=== PATIENT | male | born 1940 | race Caucasian/White ===

== ENCOUNTER → 2018-04-06 12:26 | Outpatient (CLI) | payer MEDICARE, BC, SELFPAY ==
--- NOTE | 2018-04-08 09:00 | PM.PFT.1 ---
Pulmonary Function Test Referral & Results Date Patient Seen: 04/06/18 Requesting provider: Pawan Raphael Indication: Amiodarone therapy Results: The spirometry demonstrates an FVC of 4.55 L which is 103% of predicted. The FEV1 was measured at 3.51 L which is 110% of predicted. The FEV1/FVC ratio was 77 which is 107% of predicted. No bronchodilator was administered Lung volumes show an SVC of 4.92 L which is 106% of predicted. The diffusing capacity was measured at 22.5 for which is 66% of predicted. No hemoglobin value was provided, so no correction for potential anemia could be made, if appropriate. The maximum voluntary ventilation was normal. Interpretation: This study demonstrates normal spirometry. Diffusing capacity is reduced as above. Compared to PFTs performed in September 2017, previous spirometry was also normal but diffusing capacity was measured at 27.01 or 80% of predicted compared to 22.5 and 66% of predicted on this study
== END ==
PROVIDERS: PCP Physician Assistant; Visit Provider Internal Medicine Cardiovascular Disease
DX: Z79.899 Other long term (current) drug therapy (principal)
CPT/HCPCS: 94010; 94726; 94729

== ENCOUNTER → 2018-05-16 08:19 | Outpatient (CLI) | payer MEDICARE, BC, SELFPAY ==
[2018-05-16 10:19] LABS: Alanine Aminotransferase 30 IU/L (21-72); Albumin 3.7 g/dL (3.5-5.0); Albumin Globulin Ratio 1.5 (1.0-2.8); Alkaline Phosphatase 69 U/L (38-126); Aspartate Aminotransferase 25 IU/L (17-59); Bilirubin Total 0.6 mg/dL (0.2-1.3); Blood Urea Nitrogen 18 mg/dL (9-20); Calcium 8.5 mg/dL (8.4-10.2); Carbon Dioxide 27 mmol/L (22-32); Chloride 105 mmol/L (98-107); Globulin 2.5 g/dL (1.7-4.1); Glucose 86 mg/dL (80-110); HEMOLYSIS < 15 (0-50); Potassium 4.8 mmol/L (3.4-5.1); Sodium 141 mmol/L (137-145); Total Protein 6.2 g/dL (6.3-8.2)
[2018-05-16 10:50] LABS: Thyroid Stimulating Hormone 1.86 uIU/mL (0.47-4.68)
== END ==
PROVIDERS: PCP Physician Assistant; Visit Provider Internal Medicine Cardiovascular Disease
DX: I48.2 Chronic atrial fibrillation (principal); I48.0 Paroxysmal atrial fibrillation; I49.3 Ventricular premature depolarization; Z79.899 Other long term (current) drug therapy
CPT/HCPCS: 36415; 80053; 84443

== ENCOUNTER → 2018-06-06 08:31 | Outpatient (CLI) | payer MEDICARE, BC, SELFPAY ==
[2018-06-06 10:45] LABS: BUN Creatinine Ratio 15.4 (6-22); Blood Urea Nitrogen 20 mg/dL (9-20); Calcium 8.5 mg/dL (8.4-10.2); Carbon Dioxide 27 mmol/L (22-32); Chloride 106 mmol/L (98-107); Estimated Glomerular Filt Rate 53.8 mL/min (>60); Glucose 92 mg/dL (80-110); HEMOLYSIS < 15 (0-50); Potassium 4.1 mmol/L (3.4-5.1); Sodium 143 mmol/L (137-145)
== END ==
PROVIDERS: Family Provider Physician Assistant; PCP Physician Assistant; Visit Provider Internal Medicine Cardiovascular Disease
DX: I48.0 Paroxysmal atrial fibrillation (principal)
CPT/HCPCS: 36415; 80048

== ENCOUNTER → 2018-09-15 12:13 | Outpatient (CLI) | payer MEDICARE, BC, SELFPAY ==
--- NOTE | 2018-09-15 | DI.ECHO.S_ITS ---
[facility] +---------+ [facility] +---------+ : : [address] : [address] : : : : [phone] : : : : Phone: [phone]---------+ Echocardiogram Report + + :Name: HEIDI URENA Study Date: 09/15/2018 Height: 71 in : :[facility] Weight: 215 lb: : Gender: Male BSA: 2.2 m2 : :: 1940 Age: 78 yrs : :Reason For Study: : :Ordering Physician: Lakshmi : :Ijeoma Performed By: Natalya Crouch : :Referring: LAKSHMI NGUYEN : + + Interpretation Summary The left ventricle is mildly dilated. Left ventricular ejection fraction is estimated to be 45 +/- 5%. There is mild to moderate global hypokinesis of the left ventricle. The right ventricle is at the upper limits of normal in size. The left atrium is severely dilated. There is mild mitral regurgitation. There is mild aortic regurgitation. There is moderate to severe aortic stenosis. There has been no significant change since the previous study. There is mild tricuspid regurgitation. The right ventricular systolic pressure is estimated to be at least 32 mmHg based on an estimated right atrial pressure of 3 mm Hg. Procedure: A two-dimensional transthoracic echocardiogram with color flow and Doppler was performed. The study quality was technically adequate. Comparison is made with the echocardiogram of 11/17/2016. The heart rate ranged between 49-60 bpm during the study. Left Ventricle: There is normal left ventricular wall thickness. The left ventricle is mildly dilated. By systolic and diastolic volumes, left ventricle is severely abnormal. By 2D measurements, left ventricle is mildly abnormal. Left ventricular ejection fraction is estimated to be 45 +/- 5%. There is mild to moderate global hypokinesis of the left ventricle. Right Ventricle: The right ventricle is at the upper limits of normal in size. Right ventricular systolic function is borderline reduced. Atria: The left atrium is severely dilated. The right atrium is mildly dilated. There is no Doppler evidence for an interatrial shunt. Mitral Valve: There is mild mitral annular calcification. The mitral valve leaflets appear mildly thickened, but open well. There is mild mitral regurgitation. Aortic Valve: The aortic valve is trileaflet. The peak aortic velocity is averaged at 3.04 m/sec. The peak aortic velocity on the previous exam was 3.09 m/sec. The aortic valve mean gradient is 20 mmHg. There is moderate to severe aortic stenosis. There has been no significant change since the previous study. There is mild aortic regurgitation. Tricuspid Valve: The tricuspid valve leaflets are thin and pliable. There is mild tricuspid regurgitation. The right ventricular systolic pressure is estimated to be at least 32 mmHg based on an estimated right atrial pressure of 3 mm Hg. Pulmonic Valve: The pulmonic valve is normal in structure and function. There is a trace or physiologic amount of pulmonic regurgitation. Great Vessels: The aortic root is normal size. The ascending aorta is at the upper limits of normal in size. The aortic arch is normal in size. The pulmonary artery is normal size. The IVC is of normal diameter and collapses greater than 50% with a sniff. This suggests a low right atrial pressure of 3 mm Hg. Pericardium/ Pleura There is no pericardial effusion. There is no pleural effusion. MMode/2D Measurements & Calculations LVIDd: 6.0 cm LVOT diam: 2.2 cm LVIDs: 5.2 cm Ao root diam: 3.7 cm FS: 13.5 % asc Aorta Diam: 3.5 cm IVSd: 0.90 cm Ao Arch Diam (Prox Trans): 2.6 cm LVPWd: 0.91 cm LV perez. diameter/BSA (cm/m^2): 2.8 LV sys. diameter/BSA (cm/m^2): 2.4 LA A2 area: 34.7 cm2 RA long axis: 6.0 cm LA A4 area: 32.2 cm2 RA area: 23.6 cm2 LA length (vol): 6.7 cm RA vol: 78.5 ml LA vol: 142.2 ml RA : 36.1 ml/m2 LA vol index: 65.4 ml/m2 IVC diam: 2.1 cm RVD1 (basal): 3.7 cm TAPSE: 1.6 cm Doppler Measurements & Calculations Ao V2 max: 304.0 cm/sec LVOT Max Josh: 105.7 cm/sec Ao V2 mean: 208.6 cm/sec LV V1 max P.5 mmHg Ao max P.2 mmHg LV V1 VTI: 26.8 cm Ao mean P.5 mmHg JUDY(I,D): 1.4 cm2 Ao V2 VTI: 77.7 cm JUDY(V,D): 1.4 cm2 sev ratio: 0.34 JUDY indexed to BSA (cm^2/m^2): 0.62 MV E max josh: 58.5 cm/sec TR max josh: 267.9 cm/sec MV A max josh: 95.4 cm/sec TR max P.7 mmHg MV E/A: 0.61 Med Peak E' Josh: 5.6 cm/sec E/E' med: 10.5 Lat Peak E' Josh: 5.6 cm/sec E/E' lat: 10.5 E/e' average: 10.5 MV dec time: 0.28 sec Reading Physician:09:01 AM
--- NOTE | 2018-09-15 | DI.US.S_ITS ---
PROCEDURE: US RETRO PERITONEAL LIMITED INDICATIONS: NONRHEUMATIC AROTIC VALVE TECHNIQUE: Real time scanning was performed of the aorta and iliac arteries, with image documentation. COMPARISON: None. FINDINGS: Aorta: Proximal aortic diameter measures 2.3 cm. Mid-aorta measures 1.7 cm. Distal aortic diameter is 3.5 x 4.3 x 4.6 cm compared to 3.9 x 4.1 x 5.6 cm. Iliac arteries: Right common iliac artery measures 1.2 cm. Left common iliac artery measures 1.1 cm. IMPRESSION: 1. Less prominent appearance previously identified distal aortic aneurysmal dilation. Dictated by: Linh Fuentes M.D. on 09/15/2018 at 14:21 Approved by: Linh Fuentes M.D. on 09/15/2018 at 14:22
--- NOTE | 2018-09-15 | DI.US.S_ITS ---
PROCEDURE: US CAROTID DOPPLER BI INDICATIONS: NONRHEUMATIC AORTIC VALVE TECHNIQUE: Color and pulse Doppler interrogation was performed of both carotid systems, with image documentation and velocity measurements. COMPARISON: [facility], , CAROTID ARTERY DOPPLER BILAT, 05/05/2017, 13:21. FINDINGS: Stenosis calculations are based on SRU (Society of Radiologists in Ultrasound) criteria. Right side: Brachial blood pressure: Not obtained Common carotid artery peak systolic velocity: 72 cm/sec. Internal carotid artery peak systolic velocity: 76 cm/sec. Internal carotid artery end diastolic velocity: 21 cm/sec. External carotid artery peak systolic velocity: 65 cm/sec. ICA/CCA peak systolic ratio: 1.06 . Gonzales scale imaging description: Moderate plaque at the bifurcation Percent internal carotid artery stenosis: Less than 50%. Vertebral artery: Flow direction is antegrade. Left side: Brachial blood pressure: Not obtained Common carotid artery peak systolic velocity: 73 cm/sec. Internal carotid artery peak systolic velocity: 92 cm/sec. Internal carotid artery end diastolic velocity: 67 cm/sec. External carotid artery peak systolic velocity: 62 cm/sec. ICA/CCA peak systolic ratio: 1.26 Gonzales scale imaging description: Moderate plaque in the bifurcation. Percent internal carotid artery stenosis: Less than 50%. Vertebral artery: Flow direction is antegrade. IMPRESSION: Less than 50% stenosis of the internal carotid arteries bilaterally. Dictated by: Linh Fuentes M.D. on 09/15/2018 at 14:18 Approved by: Linh Fuentes M.D. on 09/15/2018 at 14:20
== END ==
PROVIDERS: PCP Internal Medicine; Visit Provider Internal Medicine Cardiovascular Disease
DX: I35.0 Nonrheumatic aortic (valve) stenosis (principal)
CPT/HCPCS: 76775; 93306; 93880

== ENCOUNTER → 2018-11-07 16:12 | Outpatient (REF) | payer MEDICARE, BC, SELFPAY ==
[2018-11-07 16:55] LABS: INR 2.8 (0.9-1.3); Prothrombin Time 33.1 SECONDS (10.1-12.7)
== END ==
LOC: LAB 16:12
PROVIDERS: PCP Internal Medicine; Visit Provider Internal Medicine
DX: I48.2 Chronic atrial fibrillation (principal)
CPT/HCPCS: 85610

== ENCOUNTER → 2019-08-02 07:41 | Outpatient (CLI) | payer MEDICARE, BC, SELFPAY ==
[2019-08-02 08:42] LABS: Alanine Aminotransferase 19 IU/L (21-72); Albumin 3.6 g/dL (3.5-5.0); Albumin Globulin Ratio 1.4 (1.0-2.8); Alkaline Phosphatase 62 U/L (38-126); Aspartate Aminotransferase 25 IU/L (17-59); BUN Creatinine Ratio 17.7 (6-22); Bilirubin Total 0.8 mg/dL (0.2-1.3); Blood Urea Nitrogen 23 mg/dL (9-20); Calcium 8.8 mg/dL (8.4-10.2); Carbon Dioxide 27 mmol/L (22-32); Chloride 107 mmol/L (98-107); Cholesterol 153 mg/dL (140-199); Estimated Glomerular Filt Rate 53.7 mL/min (>60); Globulin 2.6 g/dL (1.7-4.1); Glucose 79 mg/dL (80-110); HDL Cholesterol 61 mg/dL (40-60); HEMOLYSIS < 15 (0-50); LDL Cholesterol Calculated 80 mg/dL (<100); Potassium 3.9 mmol/L (3.4-5.1); Sodium 139 mmol/L (137-145); Total Protein 6.2 g/dL (6.3-8.2); Triglycerides 58 mg/dL (35-150)
== END ==
PROVIDERS: PCP Internal Medicine; Visit Provider Internal Medicine Cardiovascular Disease
DX: Z79.899 Other long term (current) drug therapy (principal)
CPT/HCPCS: 36415; 80053; 80061; 84443

== ENCOUNTER → 2019-08-09 08:50 | Outpatient (CLI) | payer MEDICARE, BC, SELFPAY ==
--- NOTE | 2019-08-09 | DI.US.S_ITS ---
PROCEDURE: US CAROTID DOPPLER BI INDICATIONS: CAROTID ARTERY STENOSIS TECHNIQUE: Color and pulse Doppler interrogation was performed of both carotid systems, with image documentation and velocity measurements. COMPARISON: [facility], , CAROTID ARTERY DOPPLER BILAT, 05/05/2017, 13:21. [facility], , US CAROTID DOPPLER BI, 09/15/2018, 13:16. FINDINGS: Stenosis calculations are based on SRU (Society of Radiologists in Ultrasound) criteria. The flow velocities and the arterial waveforms are normal within both carotid arterial systems. Atherosclerotic plaque is seen on both sides. The estimated degree of internal carotid artery stenosis is less than 50%. Antegrade flow is confirmed within both vertebral arteries. IMPRESSION: No hemodynamically significant stenosis is seen. No significant change from the prior. Atherosclerotic plaque is noted bilaterally. Dictated by: Cristian Peterson M.D. on 08/09/2019 at 12:31 Approved by: Cristian Peterson M.D. on 08/09/2019 at 12:32
--- NOTE | 2019-08-09 | DI.US.S_ITS ---
PROCEDURE: US RETRO PERITONEAL LIMITED INDICATIONS: ABDOMINAL AORTIC ANEURYSM WITHOUT RUPTURE TECHNIQUE: Real time scanning was performed of the aorta and iliac arteries, with image documentation. COMPARISON: [facility], RETRO PERITONEAL LIMITED, 09/15/2018, 13:27. FINDINGS: Aorta: Proximal aortic diameter measures 3.0 cm. Mid-aorta measures 2.5 cm. Distal aortic diameter is 4.0 cm AP by 4.7 cm transverse by 5.0 cm sagittal compared to 3.5 cm AP by 4.3 cm transverse by 4.6 cm craniocaudal. Iliac arteries: Right common iliac artery measures 1.9 cm compared to 1.2 cm. Left common iliac artery measures 1.8 cm compared to 1.1 cm. IMPRESSION: 1. Distal aortic aneurysmal dilation, increased compared to prior exam as above. 2. 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 Given prominent change in both the common iliac and aorta, CTA is recommended for further evaluation. Dictated by: Linh Fuentes M.D. on 08/09/2019 at 13:21 Approved by: Linh Fuentes M.D. on 08/09/2019 at 13:24
== END ==
PROVIDERS: PCP Internal Medicine; Visit Provider Internal Medicine Cardiovascular Disease
DX: I71.4 Abdominal aortic aneurysm, without rupture (principal); I65.23 Occlusion and stenosis of bilateral carotid arteries
CPT/HCPCS: 76775; 93880

== ENCOUNTER → 2019-08-14 09:23 | Outpatient (CLI) | payer MEDICARE, BC, SELFPAY ==
--- NOTE | 2019-08-14 | DI.CT.S_ITS ---
PROCEDURE: CT ANGIO ABD AORTA RUNOFF INDICATIONS: large aorta TECHNIQUE: After the administration of intravenous contrast, 2.5 mm sections acquired from T12 to the feet, with optional delayed image acquisition from the knees to the feet. 3-dimensional maximum intensity projection (MIP) coronal and sagittal reformats, and/or 3-dimensional volume rendering reformatting was then performed. For radiation dose reduction, the following was used: automated exposure control. COMPARISON: [facility], , US RETRO PERITONEAL LIMITED, 08/09/2019, 8:59. [facility], , US CAROTID DOPPLER BI, 08/09/2019, 9:19. FINDINGS: Image quality: Excellent. Extravascular tissues: Lung bases are clear. Heart size is normal. Liver is normal in size and enhancement. Gallbladder demonstrates multiple calculi within its lumen. Biliary system is non dilated. Pancreas enhances normally. Spleen is normal in size and enhancement. No adrenal nodules. Kidneys are normal in size and enhancement, without hydronephrosis. Non opacified bowel loops demonstrate normal wall thickness and enhancement. No free fluid or air. No retroperitoneal or mesenteric adenopathy. No ventral hernias. Bladder wall thickness is normal. No inguinal hernias or adenopathy. No suspicious bony lesions. No vertebral body compression fractures. 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 No significant aortic stenosis. No aortic dissection. Renal and mesenteric arteries: Celiac, superior mesenteric, and inferior mesenteric arteries are patent. Single bilateral renal arteries are present which demonstrate mild diffuse stenoses. Right lower extremity: There is mild dilatation of the right common iliac artery diffusely measuring 17 mm short axis. The common, internal, and external iliac arteries are patent. Common, profunda, and superficial femoral arteries are widely patent. Above and below-knee popliteal artery is patent. Anterior tibial artery, tibioperoneal trunk, peroneal, and posterior tibial arteries are patent to their normal termini. Left lower extremity: There is mild diffuse dilatation of the left common iliac artery, measuring 16 mm short axis. There is a moderate origin stenosis involving the internal iliac artery. External iliac artery is patent. Common femoral artery demonstrates moderate eccentric calcific stenosis distally. Profound and superficial femoral arteries are patent. Above and below-knee popliteal artery is patent. Anterior tibial artery, tibioperoneal trunk, peroneal and posterior tibial arteries are patent. IMPRESSION: 1. Aortoiliac aneurysms as described above. 2. Cholelithiasis. 3. No significant right inflow stenosis. 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 4. Three-vessel bilateral lower extremity runoff. Dictated by: Aspen Sandoval M.D. on 08/14/2019 at 10:42 Approved by: Aspen Sandoval M.D. on 08/14/2019 at 10:55
[2019-08-14 10:12] LABS: BUN Creatinine Ratio 17.5 (6-22); Blood Urea Nitrogen 21 mg/dL (9-20); Calcium 8.7 mg/dL (8.4-10.2); Carbon Dioxide 28 mmol/L (22-32); Chloride 104 mmol/L (98-107); Estimated Glomerular Filt Rate 58.9 mL/min (>60); Glucose 91 mg/dL (80-110); HEMOLYSIS < 15 (0-50); Potassium 4.7 mmol/L (3.4-5.1); Sodium 140 mmol/L (137-145)
[2019-08-14 10:32] LABS: Free T3, Triiodothyronine Free 4.33 pg/mL (2.77-5.27); Free T4, Direct Thyroxine 2.23 ng/dL (0.78-2.19)
[2019-08-14 10:45] LABS: Thyroid Stimulating Hormone 0.06 uIU/mL (0.47-4.68)
[2019-08-17 07:29] LABS: Thyroid Peroxidase Antibodies < 1 IU/mL (< 9)
== END ==
PROVIDERS: PCP Internal Medicine; Visit Provider Internal Medicine Cardiovascular Disease
DX: I71.4 Abdominal aortic aneurysm, without rupture (principal); I70.202 Unspecified atherosclerosis of native arteries of extremities, left leg; K80.20 Calculus of gallbladder without cholecystitis without obstruction; I10 Essential (primary) hypertension; R79.89 Other specified abnormal findings of blood chemistry; Z79.899 Other long term (current) drug therapy
CPT/HCPCS: 36415; 75635; 80048; 84439; 84443; 84481; 86376; Q9967

== ENCOUNTER → 2020-01-29 07:59 | Outpatient (CLI) | payer MEDICARE, BC, SELFPAY ==
[2020-01-29 09:11] LABS: Alanine Aminotransferase 23 IU/L (<50); Albumin 3.8 g/dL (3.5-5.0); Albumin Globulin Ratio 1.4 (1.0-2.8); Alkaline Phosphatase 78 U/L (38-126); Aspartate Aminotransferase 30 IU/L (17-59); Bilirubin Total 0.5 mg/dL (0.2-1.3); Blood Urea Nitrogen 26 mg/dL (9-20); Calcium 8.5 mg/dL (8.4-10.2); Carbon Dioxide 27 mmol/L (22-32); Chloride 109 mmol/L (98-107); Estimated Glomerular Filt Rate 53.5 mL/min (>60); Globulin 2.8 g/dL (1.7-4.1); Glucose 92 mg/dL (80-110); HEMOLYSIS < 15 (0-50); Potassium 4.2 mmol/L (3.4-5.1); Sodium 143 mmol/L (137-145); Total Protein 6.6 g/dL (6.3-8.2)
[2020-01-29 09:15] LABS: Cholesterol 179 mg/dL (140-199); HDL Cholesterol 56 mg/dL (40-60); LDL Cholesterol Calculated 94 mg/dL (<100); Triglycerides 144 mg/dL (35-150)
== END ==
PROVIDERS: PCP Internal Medicine; Referring Provider Internal Medicine Cardiovascular Disease; Visit Provider Internal Medicine Cardiovascular Disease
DX: I10 Essential (primary) hypertension (principal); I35.0 Nonrheumatic aortic (valve) stenosis; I71.4 Abdominal aortic aneurysm, without rupture; I65.23 Occlusion and stenosis of bilateral carotid arteries
CPT/HCPCS: 36415; 80053; 80061

== ENCOUNTER → 2020-01-30 13:43 | Outpatient (CLI) | payer MEDICARE, BC, SELFPAY ==
--- NOTE | 2020-01-30 | DI.ECHO.S_ITS ---
[place] +---------+ [facility] +---------+ : : [address] : [address] : : : : [id number] : : : : Phone: [phone]---------+ Echocardiogram Report + + :Name: HEIDI URENA Study Date: 01/30/2020 Height: 71 in : :[facility] Weight: 214 lb : : Gender: Male BSA: 2.2 m2 : :: 1940 Age: 79 yrs BP: 132/80 mmHg: :Ordering Physician: Lakshmi : :Toshia Nguyen Performed By: Sonam Parra : :Referring: LAKSHMI NGUYEN : + + Interpretation Summary The left ventricle is mild-moderately dilated. Left ventricular ejection fraction is estimated to be 55 +/- 5%. Compared to the prior exam, the left ventricular function is improved. There is a significant dyssynchronous contraction pattern, during PVCs. The right ventricle is at the upper limits of normal in size. The right ventricular systolic function is normal. There is moderate aortic valve sclerosis. The peak aortic velocity is 3.94 m/sec. The aortic valve mean gradient is 33.3 mmHg. The calculated aortic valve area is 1.3 cm2. The peak aortic velocity on the previous exam was 3.04 m/sec. There is moderate aortic stenosis. Compared to the prior echo study, there has been an increase in the severity of aortic stenosis. There is mild aortic regurgitation. Compared to the prior echo study, there has been no change in the severity of aortic regurgitation. There is mild tricuspid regurgitation. The right ventricular systolic pressure is estimated to be at least 30 mmHg based on an estimated right atrial pressure of 3 mm Hg. Moderate atherosclerotic plaque(s) in the aortic arch. Procedure: A two-dimensional transthoracic echocardiogram with color flow and Doppler was performed. Comparison is made with the echocardiogram of 09/15/2018. The patient was in sinus bradycardia with heart rates between 56- 61 bpm during the exam. The patient had frequent PVCs during the exam. Left Ventricle: The left ventricle is mild-moderately dilated. There is normal left ventricular wall thickness. The left ventricular apex is not well visualized. Left ventricular ejection fraction is estimated to be 55 +/- 5%. Compared to the prior exam, the left ventricular function is improved. There is a significant dyssynchronous contraction pattern, consistent with a conduction abnormality. Diastolic parameters suggest a relaxation abnormality of the left ventricle, consistent with probable normal filling pressures. Right Ventricle: The right ventricle is at the upper limits of normal in size. The right ventricular systolic function is normal. Atria: The left atrium is severely dilated. The left atrium has remained unchanged in size since the prior echo exam. The right atrium is moderately dilated. There is no Doppler evidence for an interatrial shunt. Mitral Valve: There is mild mitral annular calcification. The mitral valve leaflets are mildly calcified. There is trace mitral regurgitation. Aortic Valve: The aortic valve is trileaflet. There is moderate aortic valve sclerosis. There is moderately reduced leaflet mobility. There is moderate aortic stenosis. The peak aortic velocity is 3.94 m/sec. The aortic valve mean gradient is 33.3 mmHg. The calculated aortic valve area is 1.3 cm2. The peak aortic velocity on the previous exam was 3.04 m/sec. Compared to the prior echo study, there has been an increase in the severity of aortic stenosis. There is mild aortic regurgitation. Compared to the prior echo study, there has been no change in the severity of aortic regurgitation. Tricuspid Valve: The tricuspid valve is normal. There is mild tricuspid regurgitation. The right ventricular systolic pressure is estimated to be at least 30 mmHg based on an estimated right atrial pressure of 3 mm Hg. Compared to the prior echo exam, there has been no change in TR severity. Pulmonic Valve: The pulmonic valve is not well seen, but is grossly normal. There is no pulmonic valvular regurgitation. Great Vessels: The aortic root is normal size. There is aortic root sclerosis/calcification. The ascending aorta is at the upper limits of normal in size. Moderate atherosclerotic plaque(s) in the aortic arch. The IVC is of normal diameter and collapses greater than 50% with a sniff. This suggests a low right atrial pressure of 3 mm Hg. Pericardium/ Pleura There is no pericardial effusion. There is no pleural effusion. MMode/2D Measurements & Calculations LVIDd: 6.4 cm LVOT diam: 2.2 cm LVIDs: 4.2 cm Ao root diam: 3.5 cm FS: 34.1 % asc Aorta Diam: 3.5 cm EPSS: 1.6 cm Ao Arch Diam (Prox Trans): 3.0 cm IVSd: 1.0 cm LVPWd: 0.84 cm LV perez. diameter/BSA (cm/m^2): 3.0 LV sys. diameter/BSA (cm/m^2): 2.0 LA A2 area: 27.0 cm2 RA long axis: 5.4 cm LA A4 area: 26.9 cm2 RA area: 23.1 cm2 LA length (vol): 6.0 cm RA vol: 83.6 ml LA vol: 102.3 ml RA : 38.5 ml/m2 LA vol index: 47.1 ml/m2 IVC diam: 0.90 cm RVD1 (basal): 4.0 cm TAPSE: 2.2 cm Doppler Measurements & Calculations Ao V2 max: 394.8 cm/sec LVOT Max Josh: 139.8 cm/sec Ao V2 mean: 272.0 cm/sec LV V1 max P.8 mmHg Ao max P.4 mmHg LV V1 VTI: 31.4 cm Ao mean P.3 mmHg JUDY(I,D): 1.3 cm2 Ao V2 VTI: 95.9 cm JUDY(V,D): 1.4 cm2 sev ratio: 0.33 JUDY indexed to BSA (cm^2/m^2): 0.59 AI P1/2t: 551.8 msec AI dec slope: 210.4 cm/sec2 MV E max josh: 70.2 cm/sec TR max josh: 257.5 cm/sec MV A max josh: 101.5 cm/sec TR max P.5 mmHg MV E/A: 0.69 PA V2 max: 113.5 cm/sec Med Peak E' Josh: 5.7 cm/sec PA V2 mean: 68.7 cm/sec E/E' med: 12.4 PA mean P.3 mmHg Lat Peak E' Josh: 7.6 cm/sec PA pr(Accel): 37.0 mmHg E/E' lat: 9.3 PA Accel Time: 0.10 sec E/e' average: 10.8 MV dec time: 0.40 sec MV P1/2t: 121.2 msec MV P1/2t max josh: 69.3 cm/sec SV(LVOT): 122.5 ml MVA(P1/2t): 1.8 cm2 Reading Physician:05:15 PM
== END ==
PROVIDERS: PCP Internal Medicine; Referring Provider Internal Medicine; Visit Provider Internal Medicine Cardiovascular Disease
DX: I08.2 Rheumatic disorders of both aortic and tricuspid valves (principal); I70.0 Atherosclerosis of aorta
CPT/HCPCS: 93306

== ENCOUNTER → 2020-06-04 08:18 | Outpatient (CLI) | payer MEDICARE, BC, SELFPAY ==
[2020-06-04 09:00] LABS: Alanine Aminotransferase 21 IU/L (<50); Albumin 3.7 g/dL (3.5-5.0); Albumin Globulin Ratio 1.5 (1.0-2.8); Alkaline Phosphatase 67 U/L (38-126); Aspartate Aminotransferase 30 IU/L (17-59); BUN Creatinine Ratio 23.7 (6-22); Bilirubin Total 0.6 mg/dL (0.2-1.3); Blood Urea Nitrogen 23 mg/dL (9-20); Calcium 8.7 mg/dL (8.4-10.2); Carbon Dioxide 29 mmol/L (22-32); Chloride 108 mmol/L (98-107); Cholesterol 144 mg/dL (140-199); Estimated Glomerular Filt Rate > 60.0 mL/min (>60); Globulin 2.5 g/dL (1.7-4.1); Glucose 89 mg/dL (80-110); HDL Cholesterol 45 mg/dL (40-60); HEMOLYSIS < 15 (0-50); LDL Cholesterol Calculated 83 mg/dL (<100); Potassium 4.2 mmol/L (3.4-5.1); Sodium 139 mmol/L (137-145); Total Protein 6.2 g/dL (6.3-8.2); Triglycerides 80 mg/dL (35-150)
== END ==
PROVIDERS: PCP Internal Medicine; Referring Provider Internal Medicine; Visit Provider Internal Medicine
DX: E78.5 Hyperlipidemia, unspecified (principal); I10 Essential (primary) hypertension
CPT/HCPCS: 36415; 80053; 80061

== ENCOUNTER → 2020-07-01 08:50 | Outpatient (CLI) | payer MEDICARE, BC, SELFPAY ==
[2020-07-01 10:41] LABS: BUN Creatinine Ratio 22.1 (6-22); Blood Urea Nitrogen 23 mg/dL (9-20); Calcium 8.5 mg/dL (8.4-10.2); Carbon Dioxide 26 mmol/L (22-32); Chloride 106 mmol/L (98-107); Estimated Glomerular Filt Rate > 60.0 mL/min (>60); Glucose 83 mg/dL (80-110); HEMOLYSIS < 15 (0-50); Potassium 4.1 mmol/L (3.4-5.1); Sodium 137 mmol/L (137-145)
== END ==
PROVIDERS: PCP Internal Medicine; Referring Provider Internal Medicine Cardiovascular Disease; Visit Provider Internal Medicine Cardiovascular Disease
DX: I10 Essential (primary) hypertension (principal)
CPT/HCPCS: 36415; 80048

== ENCOUNTER → 2020-07-03 12:40 | Outpatient (CLI) | payer MEDICARE, BC, SELFPAY ==
--- NOTE | 2020-07-03 | DI.US.S_ITS ---
PROCEDURE: US RETRO PERITONEAL LIMITED INDICATIONS: AAA TECHNIQUE: Real time scanning was performed of the aorta and iliac arteries, with image documentation. COMPARISON: [facility], CT, CT ANGIO ABD AORTA RUNOFF, 08/14/2019, 9:34. [facility], , RETRO PERITONEAL LIMITED, 09/15/2018, 13:27. [facility], RETRO PERITONEAL LIMITED, 08/09/2019, 8:59. FINDINGS: Aorta: Proximal aortic diameter measures 1.8 cm (previously measuring 3 cm). Mid-aorta measures 2 cm (previously measuring 2.5 cm). A distal abdominal aortic aneurysm is seen, which today measures 3.7 cm AP x 4.5 cm transversely, with a craniocaudal extent of 3.7 cm. Previously, this measured 4 x 4.7 x 5 cm. Iliac arteries: Right common iliac artery measures 1.1 cm. Left common iliac artery measures 1.2 cm. IMPRESSION: Distal abdominal aortic aneurysm, which measures 3.7 cm AP x 4.5 cm transversely on these images. This aneurysm measures slightly smaller on the current study than on the prior ultrasound. Dictated by: Cristian Peterson M.D. on 07/03/2020 at 15:32 Approved by: Cristian Peterson M.D. on 07/03/2020 at 15:34
== END ==
PROVIDERS: PCP Internal Medicine; Referring Provider Internal Medicine Cardiovascular Disease; Visit Provider Internal Medicine Cardiovascular Disease
DX: I71.4 Abdominal aortic aneurysm, without rupture (principal)
CPT/HCPCS: 76775

== ENCOUNTER → 2020-12-02 13:41 | Outpatient (CLI) | payer MEDICARE, BC, SELFPAY ==
--- NOTE | 2020-12-02 | DI.ECHO.S_ITS ---
[facility] +---------+ : : [address] : [address] : : : : [id number] : : : : Phone: [phone]+ Echocardiogram Report + + :Name: HEIDI URENA Study Date: 12/02/2020 Height: 71 in : :[facility] Weight: 200 lb : : Gender: Male BSA: 2.1 m2 : :: 1940 Age: 80 yrs BP: 154/94 mmHg: :Reason For Study: AORTIC STENOSIS : :Ordering Physician: PATRICK, : :LAKSHMI Performed By: Sonam Parra : :Referring: LAKSHMI NGUYEN : + + Interpretation Summary The patient was in normal sinus rhythm during the exam. The patient had frequent PVCs during the exam. The left ventricle is mild-moderately dilated. The ejection fraction is estimated to be 55-60%. The right ventricle is at the upper limits of normal in size. The right ventricular systolic function is normal. The aortic valve is moderately calcified. There is moderate to severely reduced leaflet mobility. The peak aortic velocity is 4.2 m/sec. The peak aortic velocity on the previous exam was 3.94 m/sec. The aortic valve mean gradient is 38 mmHg. The calculated aortic valve area is 1.3 cm2. There is moderate to severe aortic stenosis. Compared to the prior echo study, there has been an increase in the severity of aortic stenosis. There is mild aortic regurgitation. Compared to the prior echo study, there has been no change in the severity of aortic regurgitation. Moderate atherosclerotic plaque(s) in the aortic arch. The IVC is of normal diameter and collapses greater than 50% with a sniff. This suggests a low right atrial pressure of 3 mm Hg. Procedure: A two-dimensional transthoracic echocardiogram with color flow and Doppler was performed. The study quality was technically adequate. Comparison is made with the echocardiogram of 01/30/2020. The patient had frequent PVCs during the exam. The heart rate ranged between 47-63 bpm during the study. The patient was in normal sinus rhythm during the exam. Left Ventricle: The left ventricle is mild-moderately dilated. There is normal left ventricular wall thickness. There is no thrombus. The ejection fraction is estimated to be 55-60%. There has been no significant change since the previous exam. There is a significant dyssynchronous contraction pattern, consistent with a conduction abnormality. Diastolic parameters suggest a relaxation abnormality of the left ventricle, consistent with probable normal filling pressures. Right Ventricle: The right ventricle is at the upper limits of normal in size. The right ventricular systolic function is normal. Atria: The left atrium is severely dilated. The left atrium has remained unchanged in size since the prior echo exam. The right atrium is mild to moderately dilated. There is no Doppler evidence for an interatrial shunt. Mitral Valve: There is mild mitral annular calcification. The mitral valve leaflets are mildly calcified. There is no mitral valve stenosis. There is mild mitral regurgitation. Aortic Valve: The aortic valve is moderately calcified. There is moderate to severely reduced leaflet mobility. There is moderate to severe aortic stenosis. The peak aortic velocity is 4.2 m/sec. The peak aortic velocity on the previous exam was 3.94 m/sec. The aortic valve mean gradient is 38 mmHg. The calculated aortic valve area is 1.3 cm2. Compared to the prior echo study, there has been an increase in the severity of aortic stenosis. There is mild aortic regurgitation. Compared to the prior echo study, there has been no change in the severity of aortic regurgitation. Tricuspid Valve: The tricuspid valve is normal in structure and function. There is trace tricuspid regurgitation. Compared to the prior echo exam, there has been a decrease in TR severity. The right ventricular systolic pressure is estimated to be at least 33 mmHg based on an estimated right atrial pressure of 3 mm Hg. Pulmonic Valve: The pulmonic valve is not well seen, but is grossly normal. There is mild pulmonic regurgitation. Great Vessels: The aortic root is normal size. The ascending aorta is at the upper limits of normal in size. Moderate atherosclerotic plaque(s) in the aortic arch. The IVC is of normal diameter and collapses greater than 50% with a sniff. This suggests a low right atrial pressure of 3 mm Hg. Pericardium/ Pleura There is no pericardial effusion. There is no pleural effusion. MMode/2D Measurements & Calculations LVIDd: 6.2 cm LVOT diam: 2.3 cm LVIDs: 4.7 cm Ao root diam: 3.6 cm FS: 24.6 % asc Aorta Diam: 3.6 cm EPSS: 1.6 cm Ao Arch Diam (Prox Trans): 2.9 cm IVSd: 0.91 cm LVPWd: 1.0 cm LV perez. diameter/BSA (cm/m^2): 2.9 LV sys. diameter/BSA (cm/m^2): 2.2 LA A2 area: 30.3 cm2 RA long axis: 5.1 cm LA A4 area: 28.7 cm2 RA area: 21.2 cm2 LA length (vol): 6.4 cm RA vol: 75.4 ml LA vol: 115.3 ml RA : 35.7 ml/m2 LA vol index: 54.7 ml/m2 IVC diam: 1.3 cm RVD1 (basal): 4.1 cm TAPSE: 2.3 cm Doppler Measurements & Calculations Ao V2 max: 417.7 cm/sec LVOT Max Josh: 136.1 cm/sec Ao V2 mean: 287.7 cm/sec LV V1 max P.4 mmHg Ao max P.8 mmHg LV V1 VTI: 31.5 cm Ao mean P.8 mmHg JUDY(I,D): 1.3 cm2 Ao V2 VTI: 101.2 cm JUDY(V,D): 1.4 cm2 sev ratio: 0.31 JUDY indexed to BSA (cm^2/m^2): 0.64 AI P1/2t: 1076 msec AI dec slope: 97.9 cm/sec2 MV E max josh: 73.0 cm/sec TR max josh: 272.2 cm/sec MV A max josh: 99.0 cm/sec TR max P.6 mmHg MV E/A: 0.74 PA V2 max: 69.4 cm/sec Med Peak E' Josh: 7.4 cm/sec PA V2 mean: 41.2 cm/sec E/E' med: 9.9 PA mean P.86 mmHg Lat Peak E' Josh: 8.1 cm/sec PA pr(Accel): 25.1 mmHg E/E' lat: 9.0 E/e' average: 9.4 MV dec time: 0.30 sec SV(LVOT): 136.2 ml Reading Physician:06:51 PM
== END ==
PROVIDERS: PCP Internal Medicine; Referring Provider Internal Medicine Cardiovascular Disease; Visit Provider Internal Medicine Cardiovascular Disease
DX: I08.0 Rheumatic disorders of both mitral and aortic valves (principal); I70.0 Atherosclerosis of aorta
CPT/HCPCS: 93306

== ENCOUNTER → 2021-03-27 08:50 | Outpatient (CLI) | payer MEDICARE, BC, SELFPAY ==
[2021-03-27 11:34] LABS: Alanine Aminotransferase 34 IU/L (<50); Albumin 3.4 g/dL (3.5-5.0); Albumin Globulin Ratio 1.3 (1.0-2.8); Alkaline Phosphatase 108 U/L (38-126); Aspartate Aminotransferase 37 IU/L (17-59); BUN Creatinine Ratio 23.5 (6-22); Bilirubin Total 0.3 mg/dL (0.2-1.3); Blood Urea Nitrogen 24 mg/dL (9-20); Calcium 8.5 mg/dL (8.4-10.2); Carbon Dioxide 29 mmol/L (22-32); Chloride 107 mmol/L (98-107); Cholesterol 164 mg/dL (140-199); Estimated Glomerular Filt Rate > 60.0 mL/min (>60); Globulin 2.6 g/dL (1.7-4.1); Glucose 84 mg/dL (80-110); HDL Cholesterol 59 mg/dL (40-60); HEMOLYSIS < 15 (0-50); LDL Cholesterol Calculated 82 mg/dL (<100); Sodium 140 mmol/L (137-145); Triglycerides 116 mg/dL (35-150)
== END ==
PROVIDERS: PCP Internal Medicine; Referring Provider Internal Medicine Cardiovascular Disease; Visit Provider Internal Medicine Cardiovascular Disease
DX: I10 Essential (primary) hypertension (principal)
CPT/HCPCS: 36415; 80053; 80061

== ENCOUNTER 2021-03-28 09:03 | Emergency (ER) | payer MEDICARE, BC, SELFPAY ==
[2021-03-28 09:05] VITALS: BP 137/65; PULSE 77; RESP 12; TEMP 37; O2SAT 100; BMI 27.8
--- NOTE | 2021-03-28 09:30 | ED.GENADULT ---
HPI - General Adult General Chief complaint: Abdominal Pain Stated complaint: brand new hernia Time Seen by Provider: 03/28/21 09:13 Source: patient Mode of arrival: Ambulatory History of Present Illness HPI narrative: 80-year-old gentleman with a history of atrial fibrillation currently anticoagulated on warfarin, hyperlipidemia and newly diagnosed right inguinal hernia that began bothering him approximately week and half ago. You seen by his primary care physician at that time and has an appointment with Dr. Peña, general surgery in 3 days. Today he is noticing that he is having increasing pain in the right inguinal area with a sensation that he has been ?kicked in the knots by a horse?. He is passing gas but feels like he is not passing as much as he usually does or as he actually needs to. He had a bowel movement yesterday morning has not had a bowel movement today. No fevers, cough, chills, headache, numbness, tingling. He does describe mild diffuse abdominal pain. He has no dysuria. Related Data Home Medications Medication Instructions Recorded Confirmed losartan 25 mg tablet 75 mg PO DAILY tab 08/02/18 09/23/19 metoprolol tartrate 25 mg tablet 12.5 mg PO BID 08/02/18 09/23/19 Previous Rx's Medication Instructions Recorded warfarin [Coumadin] 4 mg PO SEE INSTRUCTIONS #135 tab 01/27/18 atorvastatin [Lipitor] 40 mg PO HS #90 tab 02/23/18 aspirin 81 mg tablet,delayed 81 mg PO DAILY #30 tab 07/04/18 release tamsulosin 0.4 mg capsule 0.4 mg PO HS #30 cap 08/14/19 Allergies Allergy/AdvReac Type Severity Reaction Status Date / Time carvedilol [CARVEDILOL] AdvReac Severe EXTREME Unverified 03/28/21 09:14 BRADYCARDIA AT VERY LOW DOSES Review of Systems Review of Systems Narrative: Remainder of complete review of systems is otherwise unremarkable except for that included in the HPI. Patient History Medical History (Updated 03/28/21 @ 11:20 by Angie Pedroza MD) Abdominal aortic aneurysm (AAA) (2007) Atrial fibrillation (2007) BPH (benign prostatic hyperplasia) (2007) Cardiac arrhythmia (2007) Carotid artery disease (2007) Chickenpox (1952) Essential hypertension Foot pain (2000) Hyperlipidemia Measles (1953) Non-ischemic cardiomyopathy Right inguinal hernia Rubella (1951) Tinnitus of both ears (Unknown) Surgical History Hx of foot operation (1966) Status post bunionectomy Status post bunionectomy Status post hammer toe correction Status post hammer toe correction Family History Brother No problems noted. Father No problems noted. Mother No problems noted. Grandfather No problems noted. Grandmother No problems noted. Social History Smoking Status: Former smoker Smoking Status: Former smoker alcohol intake frequency: a few times a week Substance Use Type: does not use Exam Narrative Exam Narrative: General: Healthy appearing, in no acute distress. Able to give a complete and coherent history. Well-nourished well-developed HEENT: Moist mucous membranes, normal sclera with reactive pupils, Respiratory: Lungs are clear to auscultation, no wheezing no rales no rhonchi. Full and symmetrical air movement Cardiac: Iregular rate and rhythm no murmurs no bruits Abdomen: Soft, diffusely tender in all quadrants without rebound or guarding, hyperactive bowel tones, no flank pain Genitals: Normal external genitalia with no testicular tenderness. He has a large right inguinal hernia that I am unable to completely reduce in either a supine or standing position. Skin: Warm and dry, no rashes Neurologic: Grossly neurologically intact with no obvious asymmetries or abnormalities Extremities: No trauma, well perfused Psych: Cooperative, appropriate insight and affect Initial Vital Signs Initial Vital Signs: Vital Signs Temperature 98.6 F 03/28/21 09:05 Pulse Rate 77 03/28/21 09:05 Respiratory Rate 12 03/28/21 09:05 Blood Pressure 137/65 03/28/21 09:05 Pulse Oximetry 100 03/28/21 09:05 Course Orders Ordered: ED Orders 03/28/21 09:43 XR abdomen 1V Stat Vital Signs Vital signs: Vital Signs - 8 hr 03/28/21 09:05 Temperature 98.6 F Pulse Rate 77 Respiratory Rate 12 Blood Pressure 137/65 Pulse Oximetry 100 Medical Decision Making Imaging Data Abdominal x-ray: Radiologist's Impression: FINDINGS: Surgical changes and devices: None. Bowel: Bowel gas pattern is normal. Soft tissues: No suspicious abdominal calcifications. Visualized solid organ contours appear normal in size. Bones: No suspicious bony lesions. IMPRESSION: No obstruction. Dictated by: Linh Fuentes M.D. on 03/28/2021 at 9:48 MDM Narrative Medical decision making narrative: 80-year-old gentleman with a right inguinal hernia recently diagnosed. Today seem like it was hurting more significantly larger comes in for further evaluation. Initially unable to reduce the hernia standing or supine. X-ray of the abdomen does not show an acute obstruction. With further manipulation on the right side in supine position the hernia is now completely reduced. Talked about using a truss to reduce pain and keeping his appointment as scheduled on Wednesday with general surgery to discuss definitive care and treatment. He declines any additional pain medication at this time. Discharge Plan Departure Patient Disposition: Home Clinical Impression: Inguinal hernia of right side without obstruction or gangrene Instructions: DI for Groin Hernia Activity Restrictions/Additional Instructions: Thank you for coming in today Your hernia was able to be reduced here in the emergency department. I would recommend using a truss to try to keep the hernia from getting bigger and help with pain. If you have worsening pain, are unable to pass gas or have a bowel movement or notice blood in your stool you do need to return to the emergency department Please do follow-up with your INR checked today. I encourage you to keep your appointment on Wednesday with the general surgeon for further evaluation and definitive treatment of this hernia. Prescriptions: No Action losartan 25 mg tablet 75 mg PO DAILY RF: 0 metoprolol tartrate 25 mg tablet 12.5 mg PO BID RF: 0 aspirin [Adult Low Dose Aspirin] 81 mg tablet,delayed release (DR/EC) 81 mg PO DAILY Qty: 30 RF: 0 warfarin [Coumadin] 4 MG tablet 4 mg PO SEE INSTRUCTIONS Qty: 135 RF: 3 atorvastatin [Lipitor] 40 MG tablet 40 mg PO HS Qty: 90 RF: 3 tamsulosin [Flomax] 0.4 mg capsule 0.4 mg PO HS Qty: 30 RF: 0 Referrals: Richar Bangura MD [Primary Care Provider] -
--- NOTE | 2021-03-28 09:43 | DI.RAD.S_ITS ---
PROCEDURE: XR ABDOMEN 1V INDICATIONS: ? incarcerated inguinal hernia TECHNIQUE: One view of the abdomen acquired. COMPARISON: None. FINDINGS: Surgical changes and devices: None. Bowel: Bowel gas pattern is normal. Soft tissues: No suspicious abdominal calcifications. Visualized solid organ contours appear normal in size. Bones: No suspicious bony lesions. IMPRESSION: No obstruction. Dictated by: Linh Fuentes M.D. on 03/28/2021 at 9:48 Approved by: Linh Fuentes M.D. on 03/28/2021 at 9:48
[2021-03-28 11:35] VITALS: BP 137/65; PULSE 70; RESP 14; O2SAT 96
== END 2021-03-28 11:37 | disposition home or self-care (01) ==
PROVIDERS: Emergency Provider Emergency Medicine; PCP Internal Medicine
DX: K40.90 Unilateral inguinal hernia, without obstruction or gangrene, not specified as recurrent (principal)
CPT/HCPCS: 74018; 99283

== ENCOUNTER → 2021-04-07 09:34 | Outpatient (CLI) | payer MEDICARE, BC, SELFPAY ==
[2021-04-07 13:00] LABS: COVID19 -Nasal RAPID Negative (Negative)
== END ==
PROVIDERS: PCP Internal Medicine; Visit Provider Surgery
DX: Z01.812 Encounter for preprocedural laboratory examination (principal); Z20.822 Contact with and (suspected) exposure to COVID-19
CPT/HCPCS: 87635; C9803

== ENCOUNTER 2021-04-08 09:12 | Day surgery (SDC) | payer MEDICARE, BC, SELFPAY ==
[2021-04-03 07:51] VITALS: BMI 28.3
[2021-04-08] VITALS (7 sets, daily range): BP systolic 138–156; BP diastolic 60–72; PULSE 42–59; RESP 8–18; TEMP 36.2–36.9; O2SAT 93–99; BMI 28.3
[2021-04-08] MEDS: LACTATED RINGERS 1,000 ML 100 ML IV (10:00)
--- NOTE | 2021-04-08 10:04 | PM.PREOP ---
Pre-operative Note Interval Note History & Physical reviewed/Exam performed by Physician: Yes Changes to H&P: No
[2021-04-08] MEDS: CEFAZOLIN 2 GM/100 ML FROZ.PIGGY IV (10:13)
--- NOTE | 2021-04-08 10:29 | SUR.OPER ---
Supine on padded OR bed, head on pillow, arms secured on padded arm boards at <90 degrees abduction, legs uncrossed with pillow under knees and safety belt at thigh, tape over blanket over lower legs. gel pad under heels.
[2021-04-08] MEDS: BUPIVACAINE 0.25% (PF) VIAL 30 ML INJ (10:37)
--- NOTE | 2021-04-08 11:53 | P.OP_ITS ---
Operative Date/Time/Diagnoses Date of procedure: 04/08/21 Time of procedure: 11:53 Pre-op diagnosis: right inguinal hernia Post-op diagnosis: same Procedure & Clinicians Procedure: open right inguinal hernia repair with mesh Same procedure as scheduled: Yes Indications: reducible right inguinal hernia Surgeon: Pritesh Peña Anesthesia Type: General Operative Notes Findings: large direct floor hernia and cord lipoma. Specimen(s): none sent Estimated Blood Loss (mL): 20 Procedure in detail: The patient was placed supine on the table and bilateral lower extremity compression devices were applied. Anesthesia was induced they were intubated with an LMA and received 2g of Ancef. A time-out was performed. They were prepped and draped in sterile fashion. The right external inguinal ring and the anterior superior iliac crest were identified and marked. 1 finger breath above the inguinal ligament the skin was infiltrated with 0.25% bupivacaine. The skin incision was made here and the subcutaneous tissues were divided with electrocautery exposing the external oblique aponeurosis which was then opened along the direction of its fibers. Using blunt dissection the internal oblique aporneurosis was from the external oblique upper leaflet to identify the iliohypogastric nerve. Using a kittner the cord was carefully dissected away from the inguinal canal adjacent to the pubic tubercle. The cord including the vas deferens, testicular bloody supply, ilioguinal and genital nerve were encircled with a [place] drain. A moderate size direct floor defect was identified and it was reduced into the abdomen and the internal oblique aporneuorsis was approximated to the inguinal ligament with Ethibond suture to reapproximate the floor. The cremasteric fibers surrounding the cord were divided using electrocautery adjacent to the internal ring. The vas deferens and the testicular vessels were preserved and protected. There was no indirect hernia there was a small cord lipoma that was carefully skelontized away from the cord structures. I selected a 7x 15 cm lightweight Pro Loop hernia mesh. The inferior medial aspect of the mesh was anchored to insertion of the rectus muscle to the pubic tubercle such that there was approximately 2 cm of tubercle overlap with Ethibond and then was run continuously along the inferior edge of the mesh to the shelving edge of the inguinal ligament. Interrupted 3 0 Vicryl suture was used to anchor the superior aspect of the mesh to the conjoined tendon in several places. The tails were then reapproximated loosely around the spermatic cord. The tails of the mesh were then tucked under the external oblique aponeurosis. The repair was checked for hemostasis. The wound was irrigated with sterile saline. The external oblique aponeurosis was reapproximated in a running fashion using 3 0 Vicryl. The subcutaneous tissues were reapproximated with 3 0 Vicryl skin closed with 4 0 Monocryl followed by the application of Dermabond. At the end of the operation I ensured that both testicles were within the scrotum. The sponge instrument count at the end operation was correct. The patient emerged from anesthesia was extubated and transferred to the postoperative care unit in stable condition. A total of 30 ml of of 0.25% bupivicaine was used to infiltrate the skin. Complications: none Post-operative Condition: stable Disposition: same day surgery
[2021-04-08] MEDS: ONDANSETRON 4 MG/2 ML INJ IV (12:02)
[2021-04-08] MEDS: OXYCODONE/ACETAMINOPHEN 5/325 TABLET 1 TAB PO (12:02)
== END 2021-04-08 12:35 | disposition home or self-care (01) ==
PROVIDERS: PCP Internal Medicine; Referring Provider Internal Medicine; Visit Provider Surgery
PROC: (CPT 49505; principal; 2021-04-08 10:15)
DX: K40.90 Unilateral inguinal hernia, without obstruction or gangrene, not specified as recurrent (principal); I48.91 Unspecified atrial fibrillation; D17.6 Benign lipomatous neoplasm of spermatic cord
CPT/HCPCS: 49505; 85610; C1781; J0690; J1100; J2405; J2704; J3010

== ENCOUNTER → 2022-04-03 07:56 | Outpatient (CLI) | payer OTHER, SELFPAY ==
[2022-04-03 08:44] LABS: Add Manual Diff / Slide Review NO; Basophils Absolute Auto 0 /uL (0-100); Basophils Percent Auto 0.4 % (0-2); Eosinophils Absolute Auto 200 /uL (0-450); Eosinophils Percent Auto 2.9 % (2-4); Hematocrit 39.1 % (41-53); Hemoglobin 13.3 g/dL (13.5-17.5); Lymphocytes Absolute Auto 1900 /uL (1100-4500); Lymphocytes Percent Auto 31.2 % (25-40); Mean Corpuscular HGB Conc 34.1 % (30-36); Mean Corpuscular Hemoglobin 33.5 PG (26-34); Mean Corpuscular Volume 98.2 fL (80-100); Monocytes Absolute Auto 600 /uL (0-900); Monocytes Percent Auto 10.1 % (3-14); Neutrophils Absolute Auto 3500 /uL (1500-7000); Neutrophils Percent Auto 55.4 % (50-75); Platelet Count 226 X10^3/uL (150-400); Red Blood Cell Count 3.97 X10^6/uL (4.5-5.9); Red Cell Distribution Width 14.1 % (11.6-14.8); White Blood Cell Count 6.2 X10^3/uL (4.5-11.0)
[2022-04-03 09:03] LABS: Alanine Aminotransferase 48 IU/L (<50); Albumin 3.6 g/dL (3.5-5.0); Albumin Globulin Ratio 1.3 (1.0-2.8); Alkaline Phosphatase 75 U/L (38-126); Aspartate Aminotransferase 49 IU/L (17-59); BUN Creatinine Ratio 16.9 (6-22); Bilirubin Total 0.8 mg/dL (0.2-1.3); Blood Urea Nitrogen 20 mg/dL (9-20); Calcium 8.3 mg/dL (8.4-10.2); Carbon Dioxide 31 mmol/L (22-32); Chloride 107 mmol/L (98-107); Cholesterol 162 mg/dL (140-199); Estimated Glomerular Filt Rate > 60 mL/min (>60); Globulin 2.8 g/dL (1.7-4.1); Glucose 85 mg/dL (80-110); HDL Cholesterol 61 mg/dL (40-60); HEMOLYSIS < 15 (0-50); LDL Cholesterol Calculated 85 mg/dL (<100); Potassium 3.7 mmol/L (3.4-5.1); Sodium 141 mmol/L (137-145); Total Protein 6.4 g/dL (6.3-8.2); Triglycerides 78 mg/dL (35-150)
[2022-04-03 09:31] LABS: Prostate Specific Antigen Scrn 1.86 ng/mL (0.1-4.0)
== END ==
PROVIDERS: PCP Family Medicine; Referring Provider Family Medicine; Visit Provider Family Medicine
DX: E78.00 Pure hypercholesterolemia, unspecified (principal); I10 Essential (primary) hypertension; Z12.5 Encounter for screening for malignant neoplasm of prostate; I65.21 Occlusion and stenosis of right carotid artery
CPT/HCPCS: 36415; 80053; 80061; 85025; G0103

== ENCOUNTER → 2022-08-14 08:04 | Outpatient (CLI) | payer OTHER, SELFPAY ==
[2022-08-14 09:00] LABS: Alanine Aminotransferase 29 IU/L (<50); Albumin 3.7 g/dL (3.5-5.0); Albumin Globulin Ratio 1.3 (1.0-2.8); Alkaline Phosphatase 123 U/L (38-126); Aspartate Aminotransferase 36 IU/L (17-59); BUN Creatinine Ratio 22.6 (6-22); Bilirubin Total 0.5 mg/dL (0.2-1.3); Blood Urea Nitrogen 24 mg/dL (9-20); Calcium 8.2 mg/dL (8.4-10.2); Carbon Dioxide 29 mmol/L (22-32); Chloride 106 mmol/L (98-107); Cholesterol 158 mg/dL (140-199); Estimated Glomerular Filt Rate > 60 mL/min (>60); Globulin 2.9 g/dL (1.7-4.1); Glucose 90 mg/dL (80-110); HDL Cholesterol 61 mg/dL (40-60); HEMOLYSIS < 15 (0-50); LDL Cholesterol Calculated 86 mg/dL (<100); Potassium 4.1 mmol/L (3.4-5.1); Sodium 139 mmol/L (137-145); Total Protein 6.6 g/dL (6.3-8.2); Triglycerides 53 mg/dL (35-150)
== END ==
PROVIDERS: PCP Family Medicine; Referring Provider Internal Medicine Cardiovascular Disease; Visit Provider Internal Medicine Cardiovascular Disease
DX: E78.5 Hyperlipidemia, unspecified (principal); I10 Essential (primary) hypertension
CPT/HCPCS: 36415; 80053; 80061

== ENCOUNTER 2022-09-05 16:49 | Emergency (ER) | payer OTHER, SELFPAY ==
[2022-09-05] VITALS (9 sets, daily range): BP systolic 145–181; BP diastolic 64–87; PULSE 54–66; RESP 11–20; TEMP 36.6; O2SAT 98–99
--- NOTE | 2022-09-05 16:52 | DI.RAD.S_ITS ---
PROCEDURE: XR CHEST 1V INDICATIONS: chest pain TECHNIQUE: One view of the chest was acquired. COMPARISON: [facility], , CHEST 2 VIEW, 11/20/2016, 13:29. FINDINGS: Surgical changes and devices: An electronic device can be seen on the left. Lungs and pleura: Lungs are clear. No pleural effusions or pneumothorax. Mediastinum: The cardiac contours are within normal limits. The aorta demonstrates calcification and tortuosity. Bones and chest wall: No suspicious bony lesions. Age-appropriate bony degenerative changes are seen. Overlying soft tissues appear unremarkable. IMPRESSION: No acute cardiopulmonary process is seen. Dictated by: Cristian Peterson M.D. on 09/05/2022 at 16:36 Approved by: Cristian Peterson M.D. on 09/05/2022 at 16:36
[2022-09-05 17:31] LABS: Add Manual Diff / Slide Review NO; Basophils Absolute Auto 0 /uL (0-100); Basophils Percent Auto 0.4 % (0-2); Eosinophils Absolute Auto 100 /uL (0-450); Eosinophils Percent Auto 1.4 % (2-4); Hematocrit 35.6 % (41-53); Hemoglobin 12.2 g/dL (13.5-17.5); Lymphocytes Absolute Auto 1700 /uL (1100-4500); Lymphocytes Percent Auto 17.2 % (25-40); Mean Corpuscular HGB Conc 34.4 % (30-36); Mean Corpuscular Hemoglobin 33.4 PG (26-34); Mean Corpuscular Volume 97.3 fL (80-100); Monocytes Absolute Auto 1100 /uL (0-900); Monocytes Percent Auto 11.4 % (3-14); Neutrophils Absolute Auto 6700 /uL (1500-7000); Neutrophils Percent Auto 69.6 % (50-75); Platelet Count 238 X10^3/uL (150-400); Red Blood Cell Count 3.66 X10^6/uL (4.5-5.9); Red Cell Distribution Width 14.4 % (11.6-14.8); White Blood Cell Count 9.6 X10^3/uL (4.5-11.0)
[2022-09-05 17:36] LABS: Alanine Aminotransferase 37 IU/L (<50); Albumin 3.9 g/dL (3.5-5.0); Albumin Globulin Ratio 1.3 (1.0-2.8); Alkaline Phosphatase 142 U/L (38-126); Aspartate Aminotransferase 49 IU/L (17-59); BUN Creatinine Ratio 22.6 (6-22); Bilirubin Total 0.5 mg/dL (0.2-1.3); Blood Urea Nitrogen 24 mg/dL (9-20); Calcium 7.9 mg/dL (8.4-10.2); Carbon Dioxide 25 mmol/L (22-32); Chloride 108 mmol/L (98-107); Creatine Kinase 386 U/L (55-170); Estimated Glomerular Filt Rate > 60 mL/min (>60); Globulin 3.1 g/dL (1.7-4.1); Glucose 101 mg/dL (80-110); HEMOLYSIS 20 (0-50); Lipase 249 U/L (23-300); Magnesium 2.2 mg/dL (1.6-2.3); Sodium 139 mmol/L (137-145)
[2022-09-05 17:47] LABS: Troponin I < 0.012 ng/mL (0.01-0.034)
[2022-09-05 17:51] LABS: CKMB % Relative Index 0.8 % (1.5-5.0); Creatine Kinase MB 3.16 ng/mL (<2.37)
--- NOTE | 2022-09-05 18:50 | ED.CHESTPAIN ---
HPI - Chest Pain General Chief Complaint: Chest Pain Stated Complaint: Chest pains Time Seen by Provider: 09/05/22 18:48 Source: patient Mode of arrival: Family Vehicle Limitations: no limitations History of Present Illness HPI narrative: 82-year-old male former smoker with history of hypertension, hyperlipidemia, AFib on Coumadin presents with a chief complaint of chest pain that started at about 9:00 a.m. this morning upon waking noted a central sharp and stabbing chest pain that radiates to his back. It is worse with a deep breath and when he uses his arms. He denies associated symptoms such as dizziness, weakness or lightheadedness. He has no shortness of breath or cough. He is had no fever or chills nor nausea, vomiting or diarrhea. He denies any unexplained diaphoresis. 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 Patient denies any recent trauma or injury but states he has been rebuilding a deck over the past few days and wonders if that may not be contributing Related Data Home Medications Medication Instructions Recorded Confirmed coenzyme Q10 75 mg capsule (Ultra 75 mg PO DAILY 03/31/21 06/16/22 CoQ10) hydrochlorothiazide 12.5 mg capsule 12.5 mg PO DAILY 03/31/21 09/05/22 multivitamin 1 tab PO DAILY 03/31/21 09/05/22 omega-3 fatty acids 1,000 mg 1,000 mg PO DAILY 03/31/21 06/16/22 capsule (Fish Oil Concentrate) ascorbic acid (vitamin C) 500 mg 500 mg PO DAILY 04/08/21 06/16/22 tablet (Vitamin C) atorvastatin 80 mg tablet 80 mg PO DAILY 06/16/22 09/05/22 docusate sodium 100 mg capsule 100 mg PO BID PRN Constipation 06/16/22 09/05/22 (Colace) losartan 50 mg tablet 50 mg PO DAILY 06/16/22 09/05/22 metoprolol succinate 25 mg 12.5 mg PO DAILY 06/16/22 09/05/22 tablet,extended release 24 hr Previous Rx's Medication Instructions Recorded aspirin 81 mg tablet,delayed 81 mg PO DAILY #30 tabs 07/04/18 release (Adult Low Dose Aspirin) acetaminophen 325 mg capsule 650 mg PO QID PRN pain #60 caps 04/08/21 (Tylenol) colchicine 0.6 mg tablet See Rx Instructions PO .COMPLEX 06/26/22 #30 tabs warfarin 4 mg tablet 4 mg PO SEE INSTRUCTIONS #135 tabs 07/14/22 cyclobenzaprine 10 mg tablet 10 mg PO TID PRN muscle spasm #14 09/05/22 tabs lidocaine 5 % topical patch 1 patch topical DAILY #15 ea 09/05/22 (Lidoderm) Allergies Allergy/AdvReac Type Severity Reaction Status Date / Time carvedilol [CARVEDILOL] AdvReac Severe EXTREME Verified 06/16/22 07:30 BRADYCARDIA AT VERY LOW DOSES Patient History Medical History (Updated 09/05/22 @ 20:51 by Emanuel Black DO) Abdominal aortic aneurysm (AAA) (2007) Aortic stenosis Atrial fibrillation (2007) Bacterial pneumonia (10/2016) BPH (benign prostatic hyperplasia) (2007) Cardiac arrhythmia (2007) Carotid artery disease (2007) Carotid bruit Chickenpox (1952) COPD (chronic obstructive pulmonary disease) Essential hypertension Foot pain (2000) Former smoker Hearing loss Heart murmur History of left heart catheterization (04/10/16) History of pulmonary embolism (10/2016) Hyperlipidemia Low back pain Measles (1953) Mumps Non-ischemic cardiomyopathy Non-sustained ventricular tachycardia (2015) Right inguinal hernia Rubella (1951) Shoulder pain (~2019) Somatic dysfunction of lower extremity Tinnitus of both ears (Unknown) Toe pain, right Wears glasses Surgical History (Updated 10/25/21 @ 21:51 by Lacy Garvey) Anesthesia History of cardiac radiofrequency ablation History of elbow surgery (~2018) History of hernia repair (~2019) Hx of foot operation (1966) Status post bunionectomy Status post bunionectomy Status post hammer toe correction Status post hammer toe correction Family History Brother No problems noted. Father No problems noted. Mother Breast cancer Grandfather No problems noted. Grandmother Heart disease Social History marital status: household members: spouse occupational status: previously employed Smoking Status: Former smoker alcohol intake: current Smoking Status: Former smoker tobacco type: cigarettes alcohol intake frequency: a few times a week Substance Use Type: does not use Exam Narrative Exam Narrative: GENERAL: [82] year old patient appears stated age. Well-developed patient, in mild distress. HEAD: Atraumatic. Normocephalic. EYES: Pupils equal round and reactive. Extraocular motions intact. No scleral icterus. No injection or drainage. ENT: Nose without bleeding, purulent drainage. Throat without erythema, tonsillar hypertrophy or exudate. Airway patent. NECK: Trachea midline. Non tender CARDIOVASCULAR: Regular rate and rhythm without murmurs, gallops, or rubs. RESPIRATORY: Clear to auscultation. Breath sounds equal bilaterally. No wheezes, rales, or rhonchi. GASTROINTESTINAL: Abdomen soft, non-tender, nondistended. EXTREMITIES: No edema or joint tenderness. BACK: Nontender without deformity or crepitance. No flank tenderness. NEURO: AOx3. SKIN: No rash or erythema of visible areas Initial Vital Signs Initial Vital Signs: Vital Signs Temperature 97.9 F 09/05/22 16:52 Pulse Rate 66 09/05/22 16:52 Respiratory Rate 20 09/05/22 16:52 Blood Pressure 147/70 H 09/05/22 16:52 Pulse Oximetry 99 09/05/22 16:52 Oxygen Delivery Method 09/05/22 16:52 Scores HEART Score Heart Score history: Slightly Suspicious Heart Score EKG: Non-Specific repolarization disturbance Heart Score Age: > or = 65 years old Heart Score risk factors: 1-2 risk factors Heart Score troponin: < or = to normal limit Heart Score Total: 4 Course Orders Ordered: ED Orders 09/05/22 16:52 XR chest 1V Stat 09/05/22 16:55 EKG-12 Lead Stat 09/05/22 17:12 Complete Blood Count AUTO DIFF Stat Comprehensive Metabolic Panel Stat ESR [Erythrocyte Sedimentation Rate] Stat Lipase Stat Magnesium Stat Prothrombin Time INR Stat Troponin & CK Cardiac Panel Stat 09/05/22 19:26 EKG-12 Lead Stat 09/05/22 19:45 CRP [C-Reactive Protein Quant] Stat Troponin & CK Cardiac Panel Stat Discontinued Medications Cyclobenzaprine HCl (Cyclobenzaprine 10 Mg Prepack) 1 bottle MISC SEEINSTR ONE Stop: 09/05/22 20:49 Last Admin: 09/05/22 20:56 Dose: 1 bottle Documented By: AT Consultations Consultation #1: Discussed with on-call Cardiology, he sure the opinion that patient's history and physical as well as EKGs, labs and imaging would suggest against a primary cardiac diagnosis Vital Signs Vital signs: Vital Signs - 8 hr 09/05/22 16:52 09/05/22 18:48 09/05/22 18:50 Temperature 97.9 F Pulse Rate 66 58 L 56 L Respiratory Rate 20 18 17 Blood Pressure 147/70 H 181/87 H Pulse Oximetry 99 99 99 Oxygen Delivery Method Room Air 09/05/22 19:00 09/05/22 19:00 09/05/22 19:30 Temperature Pulse Rate 54 L Respiratory Rate 18 Blood Pressure 145/64 H 170/77 H Pulse Oximetry 99 Oxygen Delivery Method 09/05/22 19:30 09/05/22 20:00 09/05/22 20:01 Temperature Pulse Rate 55 L 54 L 55 L Respiratory Rate 11 L 12 15 Blood Pressure Pulse Oximetry 99 99 98 Oxygen Delivery Method 09/05/22 20:01 09/05/22 20:30 09/05/22 20:30 Temperature Pulse Rate 54 L Respiratory Rate 14 Blood Pressure 178/74 H 158/73 H Pulse Oximetry 98 Oxygen Delivery Method Room Air 09/05/22 21:00 Temperature Pulse Rate 54 L Respiratory Rate 17 Blood Pressure Pulse Oximetry 98 Oxygen Delivery Method Room Air MDM - Chest Pain Lab Data Result diagrams: 09/05/22 17:12 09/05/22 17:12 Labs: Lab Results 09/05/22 09/05/22 09/05/22 Range/Units 17:12 17:12 17:12 WBC 9.6 (4.5-11.0) X10^3/uL RBC 3.66 L (4.5-5.9) X10^6/uL Hgb 12.2 L (13.5-17.5) g/dL Hct 35.6 L (41-53) % MCV 97.3 (80-100) fL MCH 33.4 (26-34) PG MCHC 34.4 (30-36) % RDW 14.4 (11.6-14.8) % Plt Count 238 (150-400) X10^3/uL Neut % (Auto) 69.6 (50-75) % Lymph % (Auto) 17.2 L (25-40) % Sol[place] % (Auto) 11.4 (3-14) % Eos % (Auto) 1.4 L (2-4) % Baso % (Auto) 0.4 (0-2) % Neut # (Auto) 6700 (4738-6754) /uL Lymph # (Auto) 1700 (8139-3753) /uL Solano # (Auto) 1100 H (0-900) /uL Eos # (Auto) 100 (0-450) /uL Baso # (Auto) 0 (0-100) /uL ESR (0-15) MM/HR PT 40.4 H (10.1-12.7) SECONDS INR 3.5 H (0.9-1.3) Sodium 139 (137-145) mmol/L Potassium 4.0 (3.4-5.1) mmol/L Chloride 108 H (98-107) mmol/L Carbon Dioxide 25 (22-32) mmol/L BUN 24 H (9-20) mg/dL Creatinine 1.06 (0.66-1.25) mg/dL Estimated GFR > 60 (>60) mL/min BUN/Creatinine Ratio 22.6 H (6-22) Glucose 101 (80-110) mg/dL Calcium 7.9 L (8.4-10.2) mg/dL Magnesium 2.2 (1.6-2.3) mg/dL Total Bilirubin 0.5 (0.2-1.3) mg/dL AST 49 (17-59) IU/L ALT 37 (<50) IU/L Alkaline Phosphatase 142 H (38-126) U/L Total Creatine Kinase 386 H (55-170) U/L CK-MB (CK-2) 3.16 H (<2.37) ng/mL CK-MB (CK-2) Rel Index 0.8 L (1.5-5.0) % Troponin I < 0.012 (0.01-0.034) ng/mL C-Reactive Protein (<1.0) mg/dL Total Protein 7.0 (6.3-8.2) g/dL Albumin 3.9 (3.5-5.0) g/dL Globulin 3.1 (1.7-4.1) g/dL Albumin/Globulin Ratio 1.3 (1.0-2.8) Lipase 249 (23-300) U/L 09/05/22 09/05/22 Range/Units 17:12 19:45 WBC (4.5-11.0) X10^3/uL RBC (4.5-5.9) X10^6/uL Hgb (13.5-17.5) g/dL Hct (41-53) % MCV (80-100) fL MCH (26-34) PG MCHC (30-36) % RDW (11.6-14.8) % Plt Count (150-400) X10^3/uL Neut % (Auto) (50-75) % Lymph % (Auto) (25-40) % Solano % (Auto) (3-14) % Eos % (Auto) (2-4) % Baso % (Auto) (0-2) % Neut # (Auto) (4236-5642) /uL Lymph # (Auto) (9994-9964) /uL Solano # (Auto) (0-900) /uL Eos # (Auto) (0-450) /uL Baso # (Auto) (0-100) /uL ESR 8 (0-15) MM/HR PT (10.1-12.7) SECONDS INR (0.9-1.3) Sodium (137-145) mmol/L Potassium (3.4-5.1) mmol/L Chloride (98-107) mmol/L Carbon Dioxide (22-32) mmol/L BUN (9-20) mg/dL Creatinine (0.66-1.25) mg/dL Estimated GFR (>60) mL/min BUN/Creatinine Ratio (6-22) Glucose (80-110) mg/dL Calcium (8.4-10.2) mg/dL Magnesium (1.6-2.3) mg/dL Total Bilirubin (0.2-1.3) mg/dL AST (17-59) IU/L ALT (<50) IU/L Alkaline Phosphatase (38-126) U/L Total Creatine Kinase 338 H (55-170) U/L CK-MB (CK-2) 2.70 H (<2.37) ng/mL CK-MB (CK-2) Rel Index 0.8 L (1.5-5.0) % Troponin I 0.013 (0.01-0.034) ng/mL C-Reactive Protein 0.7 (<1.0) mg/dL Total Protein (6.3-8.2) g/dL Albumin (3.5-5.0) g/dL Globulin (1.7-4.1) g/dL Albumin/Globulin Ratio (1.0-2.8) Lipase (23-300) U/L Imaging Data Chest x-ray: Radiologist's Impression: [address] [address] XRay Report Signed Patient: Chester Aguila MR#: [id number] : 1940 Acct:[id number] Age/Sex: 82 / M Date of Service: 09/05/22 Loc: ED Accession Number: [id number] ?? Procedure: XR chest 1V Ordering Provider: Seun Schaffer MD PROCEDURE:? XR CHEST 1V ? INDICATIONS:? chest pain ? TECHNIQUE:? One view of the chest was acquired.? ? COMPARISON:? [facility], , CHEST 2 VIEW, 11/20/2016, 13:29. ? FINDINGS:? ? Surgical changes and devices:? An electronic device can be seen on the left. ? Lungs and pleura:? Lungs are clear.? No pleural effusions or pneumothorax.? ? Mediastinum:? The cardiac contours are within normal limits. The aorta demonstrates calcification and tortuosity. ? Bones and chest wall:? No suspicious bony lesions.? Age-appropriate bony degenerative changes are seen.? Overlying soft tissues appear unremarkable.? ? ? IMPRESSION:? ? No acute cardiopulmonary process is seen.? Dictated by: Cristian Peterson M.D. on 09/05/2022 at 16:36 ? ? Approved by: Cristian Peterson M.D. on 09/05/2022 at 16:36 MDM Narrative Medical decision making narrative: Multiple causes of chest pain considered including GA, PE, pneumothorax, pneumonia, aortic dissection, and pleurisy. Patient reports no radiation, no diaphoresis, no provocation with exertion, and no vomiting Patient's symptoms improved over duration of stay with above-stated therapies. Findings and discharge diagnosis discussed with patient/family followed by verbalization of understanding Return precautions discussed with patient/family whom verbalize understanding. Discharge Plan Departure Patient Disposition: Home Clinical Impression: Atypical chest pain Instructions: DI for Atypical Chest Pain Activity Restrictions/Additional Instructions: *You have been diagnosed with [atypical chest and back pain, as we discussed your history and physical exam as well as labs, EKGs and chest x-ray are reassuring and it seems highly unlikely that this is a life-threatening diagnosis such as heart attack, blood clot, aortic dissection or other diagnosis that would require a specific or immediate intervention *What to do: *Please continue to take your regular medications as directed. [x ] New medication prescriptions sent to your pharmacy: [[facility] ] [ ] New medication written as a paper prescription [ ] No new medications given *Please follow up with your primary care provider in 2-3 days, call for an appointment. Let them know you were seen in the Emergency Department and that we ask that you be seen in follow up. We will electronically transmit a record of today's note if your PCP is in our system *If you do not have a primary care provider please contact the [facility] Resource line at [phone]. They will ask some questions about your medical history and help get you set up with a doctor in the community. *Return to Emergency Department if you should have any new, worsening or concerning symptoms, such as [fever greater than 101 F, shaking chills, worsening pain, persistent vomiting or other bothersome symptoms] Prescriptions: New cyclobenzaprine 10 mg tablet 10 mg PO TID PRN (Reason: muscle spasm) Qty: 14 0RF lidocaine [Lidoderm] 5 % adhesive patch,medicated 1 patch TOP DAILY Qty: 15 0RF Rx Instructions: leave on most painful area for 12 hrs No Action aspirin [Adult Low Dose Aspirin] 81 mg tablet,delayed release (DR/EC) 81 mg PO DAILY Qty: 30 0RF warfarin 4 mg tablet 4 mg PO SEE INSTRUCTIONS Qty: 135 3RF Rx Instructions: 6mg daily, or as directed. colchicine 0.6 mg tablet See Rx Instructions PO .COMPLEX Qty: 30 0RF Rx Instructions: 2 tabs then another 1 tab an hour later on day one, then BID, orally; until 2 days after flare is over losartan 50 mg tablet 50 mg PO DAILY atorvastatin 80 mg tablet 80 mg PO DAILY metoprolol succinate 25 mg tablet extended release 24 hr 12.5 mg PO DAILY docusate sodium [Colace] 100 mg capsule 100 mg PO BID PRN (Reason: Constipation) hydrochlorothiazide 12.5 mg capsule 12.5 mg PO DAILY multivitamin Tablet 1 tab PO DAILY omega-3 fatty acids [Fish Oil Concentrate] 1,000 mg capsule 1,000 mg PO DAILY Ultra CoQ10 75 mg capsule 75 mg PO DAILY ascorbic acid (vitamin C) [Vitamin C] 500 mg Tablet 500 mg PO DAILY acetaminophen [Tylenol] 325 mg capsule 650 mg PO QID PRN (Reason: pain) Qty: 60 0RF Referrals: Julio Maldonado DO [Primary Care Provider] - Visit Report Forms: Patient Portal/API
[2022-09-05 18:59] LABS: INR 3.5 (0.9-1.3); Prothrombin Time 40.4 SECONDS (10.1-12.7)
[2022-09-05 19:54] LABS: Erythrocyte Sedimentation Rate 8 MM/HR (0-15)
[2022-09-05 20:10] LABS: C-Reactive Protein Quant 0.7 mg/dL (<1.0); Creatine Kinase 338 U/L (55-170)
[2022-09-05 20:17] LABS: Troponin I 0.013 ng/mL (0.01-0.034)
[2022-09-05 20:21] LABS: CKMB % Relative Index 0.8 % (1.5-5.0)
[2022-09-05] MEDS: CYCLOBENZAPRINE 10 MG PREPACK 1 BOTTLE MISC (20:56)
== END 2022-09-05 21:09 | disposition home or self-care (01) ==
PROVIDERS: Emergency Medicine; Emergency Provider Emergency Medicine; PCP Family Medicine
DX: R07.89 Other chest pain (principal)
CPT/HCPCS: 36415; 71045; 80053; 82550; 82553; 83690; 83735; 84484; 85025; 85610; 85651; 86140; 93005; 93010; 99284

== ENCOUNTER → 2022-12-22 07:55 | Outpatient (CLI) | payer OTHER, SELFPAY ==
[2022-12-22 09:03] LABS: Alanine Aminotransferase 29 IU/L (<50); Albumin 3.8 g/dL (3.5-5.0); Albumin Globulin Ratio 1.3 (1.0-2.8); Alkaline Phosphatase 94 U/L (38-126); Aspartate Aminotransferase 30 IU/L (17-59); BUN Creatinine Ratio 18.1 (6-22); Blood Urea Nitrogen 23 mg/dL (9-20); Calcium 8.4 mg/dL (8.4-10.2); Carbon Dioxide 28 mmol/L (22-32); Chloride 105 mmol/L (98-107); Cholesterol 120 mg/dL (140-199); Estimated Glomerular Filt Rate 57 mL/min (>60); Glucose 91 mg/dL (80-110); HDL Cholesterol 65 mg/dL (40-60); HEMOLYSIS < 15 (0-50); LDL Cholesterol Calculated 42 mg/dL (<100); Magnesium 1.9 mg/dL (1.6-2.3); Potassium 3.9 mmol/L (3.4-5.1); Sodium 139 mmol/L (137-145); Total Protein 6.8 g/dL (6.3-8.2); Triglycerides 64 mg/dL (35-150)
[2022-12-22 09:31] LABS: Thyroid Stimulating Hormone 3.15 uIU/mL (0.47-4.68)
== END ==
PROVIDERS: PCP Family Medicine; Referring Provider Internal Medicine Cardiovascular Disease; Visit Provider Internal Medicine Cardiovascular Disease
DX: I10 Essential (primary) hypertension (principal); E78.5 Hyperlipidemia, unspecified
CPT/HCPCS: 36415; 80053; 80061; 83735; 84443

== ENCOUNTER → 2023-02-04 09:08 | Outpatient (CLI) | payer OTHER, SELFPAY ==
[2023-02-04 10:24] LABS: BUN Creatinine Ratio 20.8 (6-22); Blood Urea Nitrogen 30 mg/dL (9-20); Calcium 8.8 mg/dL (8.4-10.2); Carbon Dioxide 29 mmol/L (22-32); Chloride 104 mmol/L (98-107); Estimated Glomerular Filt Rate 49 mL/min (>60); Glucose 69 mg/dL (80-110); HEMOLYSIS < 15 (0-50); Potassium 3.9 mmol/L (3.4-5.1); Sodium 141 mmol/L (137-145)
[2023-02-04 10:31] LABS: NT-proBNP (BNP-Adult 18+) 4800 pg/mL (<450)
== END ==
PROVIDERS: PCP Family Medicine; Referring Provider Internal Medicine Cardiovascular Disease; Visit Provider Internal Medicine Cardiovascular Disease
DX: R06.02 Shortness of breath (principal)
CPT/HCPCS: 36415; 80048; 83880

== ENCOUNTER → 2023-03-30 15:08 | Outpatient (CLI) | payer OTHER, SELFPAY ==
[2023-03-30 17:35] LABS: Alanine Aminotransferase 22 IU/L (<50); Albumin 3.8 g/dL (3.5-5.0); Albumin Globulin Ratio 1.3 (1.0-2.8); Alkaline Phosphatase 75 U/L (38-126); Aspartate Aminotransferase 36 IU/L (17-59); BUN Creatinine Ratio 18.5 (6-22); Bilirubin Total 0.8 mg/dL (0.2-1.3); Blood Urea Nitrogen 25 mg/dL (9-20); Calcium 8.5 mg/dL (8.4-10.2); Carbon Dioxide 22 mmol/L (22-32); Chloride 107 mmol/L (98-107); Estimated Glomerular Filt Rate 53 mL/min (>60); Glucose 104 mg/dL (80-110); Potassium 4.5 mmol/L (3.4-5.1); Sodium 140 mmol/L (137-145); Total Protein 6.8 g/dL (6.3-8.2)
[2023-03-30 17:37] LABS: HEMOLYSIS 83 (0-50)
[2023-03-30 18:12] LABS: Thyroid Stimulating Hormone 2.41 uIU/mL (0.47-4.68)
== END ==
PROVIDERS: PCP Family Medicine; Referring Provider Internal Medicine Cardiovascular Disease; Visit Provider Internal Medicine Cardiovascular Disease
DX: I48.0 Paroxysmal atrial fibrillation (principal)
CPT/HCPCS: 36415; 80053; 84439; 84443

== ENCOUNTER → 2023-04-29 10:52 | Outpatient (CLI) | payer OTHER, SELFPAY ==
[2023-04-29 11:42] LABS: INR 4.8 (0.9-1.3)
== END ==
PROVIDERS: PCP Family Medicine; Referring Provider Family Medicine; Visit Provider Family Medicine
DX: I82.409 Acute embolism and thrombosis of unspecified deep veins of unspecified lower extremity (principal)
CPT/HCPCS: 36415; 85610

== ENCOUNTER → 2023-05-20 09:47 | Outpatient (CLI) | payer OTHER, SELFPAY ==
[2023-05-20 12:26] LABS: Alanine Aminotransferase 25 IU/L (<50); Albumin 4.1 g/dL (3.5-5.0); Albumin Globulin Ratio 1.4 (1.0-2.8); Alkaline Phosphatase 84 U/L (38-126); Aspartate Aminotransferase 36 IU/L (17-59); BUN Creatinine Ratio 18.1 (6-22); Blood Urea Nitrogen 26 mg/dL (9-20); Calcium 8.4 mg/dL (8.4-10.2); Carbon Dioxide 23 mmol/L (22-32); Chloride 108 mmol/L (98-107); Estimated Glomerular Filt Rate 49 mL/min (>60); Glucose 95 mg/dL (80-110); HEMOLYSIS < 15 (0-50); Potassium 4.3 mmol/L (3.4-5.1); Sodium 139 mmol/L (137-145); Total Protein 7.1 g/dL (6.3-8.2)
[2023-05-20 12:50] LABS: Thyroid Stimulating Hormone 3.23 uIU/mL (0.47-4.68)
== END ==
PROVIDERS: PCP Family Medicine; Referring Provider Internal Medicine Cardiovascular Disease; Visit Provider Internal Medicine Cardiovascular Disease
DX: Z79.899 Other long term (current) drug therapy (principal)
CPT/HCPCS: 36415; 80053; 84443

== ENCOUNTER → 2023-10-29 08:12 | Outpatient (CLI) | payer OTHER, SELFPAY ==
--- NOTE | 2023-10-29 | DI.ECHO.S_ITS ---
[place]---------+ [facility] +---------+ : : [address] : : : : [id number] : : : : Phone: [phone]+ Echocardiogram Report + + :Name: HEIDI URENA Study Date: 10/29/2023 Height: 71 in : :[facility] ReadingLocation: Weight: 195 lb : : Gender: Male BSA: 2.1 m2 : :: 1940 Age: 83 yrs BP: 136/64 mmHg: :Reason For Study: Atrial fibrillation : : Performed By: Masha Arteaga : :Referring: DM VERDUGO : + + Interpretation Summary The left ventricle is moderately dilated. The ejection fraction is estimated to be 50-55%. Limited 2D echo in March 26, 2023 LVEF 20 to 25%. This was in the setting of A-fib. LVEF improved. In October 2022, LVEF 50 to 55%. The right ventricle is borderline dilated. Right ventricular systolic function is borderline reduced. The aortic valve is moderately calcified. There is moderately reduced leaflet mobility. The peak aortic velocity is 4.25 m/sec. October 2022 peak aortic valve velocity 3.6 m/s, mean gradient 30.4 mmHg. The aortic valve mean gradient is 42 mmHg. 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 sev ratio: 0.25 Overall moderate to severe aortic stenosis. Worsening since last study. There is mild aortic regurgitation. There is mild tricuspid regurgitation. Compared to the prior echo exam, there has been no change in TR severity. The right ventricular systolic pressure is estimated to be at least 32 mmHg based on an estimated right atrial pressure of 3 mm Hg. Moderate atherosclerotic plaque at the junction of aortic arch and descending thoracic aorta. Procedure: A two-dimensional transthoracic echocardiogram with color flow and Doppler was performed. The study quality was technically good. Comparison is made with the echocardiogram of 09-15-18. The patient was in sinus bradycardia with heart rates between 43-61 bpm during the exam. Left Ventricle: The left ventricle is moderately dilated. Left ventricular wall thickness is mildly increased. There is no thrombus. The ejection fraction is estimated to be 50-55%. There are no focal wall motion abnormalities. MV E/A: 0.65 Med Peak E' Josh: 4.4 cm/sec E/E' med: 15.1. Right Ventricle: The right ventricle is borderline dilated. Right ventricular systolic function is borderline reduced. Atria: The left atrium is severely dilated. There has been no significant change since the previous study. The right atrium is mildly dilated. The interatrial septum grossly appears intact with no obvious evidence for an atrial septal defect. Mitral Valve: The mitral valve leaflets appear mildly thickened, but open well. There is mild mitral annular calcification. There is mild mitral regurgitation. Compared to the prior echo study, there has been a decrease in the severity of mitral regurgitation. Aortic Valve: The aortic valve is moderately calcified. There is moderately reduced leaflet mobility. The aortic valve area indexed to the BSA is 0.52 . The peak aortic velocity is 4.25 m/sec. The aortic valve mean gradient is 42 mmHg. The calculated aortic valve area is 1.1 cm2. There is mild aortic regurgitation. Tricuspid Valve: The tricuspid valve is normal. There is mild tricuspid regurgitation. The right ventricular systolic pressure is estimated to be at least 32 mmHg based on an estimated right atrial pressure of 3 mm Hg. Compared to the prior echo exam, there has been no change in TR severity. Pulmonic Valve: The pulmonic valve is not well seen, but is grossly normal. There is trace pulmonic regurgitation. Great Vessels: The aortic root is mildly dilated. The ascending aorta is at the upper limits of normal in size. The aortic arch is normal in size. Moderate atherosclerotic plaque at the junction of aortic arch and descending thoracic aorta. The IVC is of normal diameter and collapses greater than 50% with a sniff. This suggests a low right atrial pressure of 3 mm Hg. Pericardium/ Pleura There is no pericardial effusion. There is no pleural effusion. MMode/2D Measurements & Calculations LVIDd: 6.9 cm LVOT diam: 2.4 cm LVIDs: 4.3 cm Ao root diam: 3.8 cm FS: 38.5 % asc Aorta Diam: 3.5 cm EPSS: 1.3 cm Ao Arch Diam (Prox Trans): 2.5 cm IVSd: 1.2 cm LVPWd: 1.0 cm LV perez. diameter/BSA (cm/m^2): 3.3 LV sys. diameter/BSA (cm/m^2): 2.0 LA A2 area: 36.6 cm2 RA long axis: 6.0 cm LA A4 area: 33.4 cm2 RA area: 23.1 cm2 LA length (vol): 6.8 cm RA vol: 75.9 ml LA vol: 153.7 ml RA : 36.4 ml/m2 LA vol index: 73.7 ml/m2 IVC diam: 1.6 cm RVD1 (basal): 3.1 cm Doppler Measurements & Calculations Ao V2 max: 425.9 cm/sec LVOT Max Josh: 104.8 cm/sec Ao V2 mean: 307.2 cm/sec LV V1 max P.4 mmHg Ao max P.5 mmHg LV V1 VTI: 28.4 cm Ao mean P.0 mmHg JUDY(I,D): 1.1 cm2 Ao V2 VTI: 114.6 cm JUDY(V,D): 1.1 cm2 sev ratio: 0.25 JUDY indexed to BSA (cm^2/m^2): 0.52 AI P1/2t: 711.5 msec AI dec slope: 186.5 cm/sec2 MV E max josh: 67.2 cm/sec TR max josh: 268.2 cm/sec MV A max josh: 103.4 cm/sec TR max P.8 mmHg MV E/A: 0.65 PA V2 max: 91.8 cm/sec Med Peak E' Josh: 4.4 cm/sec PA V2 mean: 58.0 cm/sec E/E' med: 15.1 PA mean P.6 mmHg MV dec time: 0.26 sec PA pr(Accel): 24.2 mmHg MR PISA: 1.8 cm2 SV(LVOT): 124.3 ml MR flow rate: 73.2 cm3/sec MR PISA radius: 0.53 cm Reading Physician:04:17 PM
== END ==
PROVIDERS: PCP Family Medicine; Referring Provider Physician Assistant; Visit Provider Physician Assistant
DX: I08.3 Combined rheumatic disorders of mitral, aortic and tricuspid valves (principal); I77.810 Thoracic aortic ectasia; I48.0 Paroxysmal atrial fibrillation; I42.8 Other cardiomyopathies
CPT/HCPCS: 93306

== ENCOUNTER → 2023-11-02 15:29 | Outpatient (CLI) | payer OTHER, SELFPAY ==
[2023-11-02 17:21] LABS: Alanine Aminotransferase 37 IU/L (<50); Albumin Globulin Ratio 1.3 (1.0-2.8); Alkaline Phosphatase 86 U/L (38-126); Aspartate Aminotransferase 46 IU/L (17-59); Bilirubin Total 0.7 mg/dL (0.2-1.3); Blood Urea Nitrogen 23 mg/dL (9-20); Calcium 8.6 mg/dL (8.4-10.2); Carbon Dioxide 27 mmol/L (22-32); Chloride 105 mmol/L (98-107); Estimated Glomerular Filt Rate 53 mL/min (>60); Globulin 3.2 g/dL (1.7-4.1); Glucose 129 mg/dL (80-110); HEMOLYSIS < 15 (0-50); Potassium 3.9 mmol/L (3.4-5.1); Sodium 138 mmol/L (137-145); Total Protein 7.2 g/dL (6.3-8.2)
[2023-11-02 17:52] LABS: TSH w/ Reflex to FT4 1.85 uIU/mL (0.47-4.68)
== END ==
PROVIDERS: PCP Family Medicine; Referring Provider Physician Assistant; Visit Provider Physician Assistant
DX: I48.0 Paroxysmal atrial fibrillation (principal); I42.8 Other cardiomyopathies
CPT/HCPCS: 36415; 80053; 84443

== ENCOUNTER → 2023-12-09 13:24 | Outpatient (CLI) | payer OTHER, SELFPAY ==
[2023-12-09 14:01] LABS: Add Manual Diff / Slide Review NO; Basophils Absolute Auto 0 /uL (0-100); Basophils Percent Auto 0.5 % (0-2); Eosinophils Absolute Auto 100 /uL (0-450); Eosinophils Percent Auto 2.1 % (2-4); Hematocrit 37.9 % (41-53); Hemoglobin 12.9 g/dL (13.5-17.5); Lymphocytes Absolute Auto 1600 /uL (1100-4500); Lymphocytes Percent Auto 23.2 % (25-40); Mean Corpuscular Volume 100.1 fL (80-100); Monocytes Absolute Auto 700 /uL (0-900); Monocytes Percent Auto 10.6 % (3-14); Neutrophils Absolute Auto 4400 /uL (1500-7000); Neutrophils Percent Auto 63.6 % (50-75); Platelet Count 253 X10^3/uL (150-400); Red Blood Cell Count 3.79 X10^6/uL (4.5-5.9); Red Cell Distribution Width 14.1 % (11.6-14.8); White Blood Cell Count 6.8 X10^3/uL (4.5-11.0)
[2023-12-09 14:45] LABS: BUN Creatinine Ratio 17.9 (6-22); Blood Urea Nitrogen 27 mg/dL (9-20); Carbon Dioxide 27 mmol/L (22-32); Chloride 104 mmol/L (98-107); Estimated Glomerular Filt Rate 46 mL/min (>60); Glucose 119 mg/dL (80-110); HEMOLYSIS < 15 (0-50); Potassium 4.1 mmol/L (3.4-5.1); Sodium 138 mmol/L (137-145)
== END ==
LOC: LAB 13:26
PROVIDERS: PCP Family Medicine; Referring Provider Internal Medicine; Visit Provider Internal Medicine
DX: I35.0 Nonrheumatic aortic (valve) stenosis (principal)
CPT/HCPCS: 36415; 80048; 85025

== ENCOUNTER → 2024-02-24 08:42 | Outpatient (CLI) | payer OTHER, SELFPAY | PROVIDERS: PCP Family Medicine; Referring Provider Internal Medicine Cardiovascular Disease; Visit Provider Internal Medicine Cardiovascular Disease | DX: Z79.899 Other long term (current) drug therapy (principal); Z87.891 Personal history of nicotine dependence; J98.8 Other specified respiratory disorders | CPT/HCPCS: 94060; 94726; 94729 ==

== ENCOUNTER → 2024-02-29 10:22 | Outpatient (CLI) | payer OTHER, SELFPAY ==
--- NOTE | 2024-02-29 10:23 | DI.US.S_ITS ---
PROCEDURE: US CAROTID DOPPLER BI INDICATIONS: OCCLUSION AND STENOSIS OF CAROTID ARTERIES BILATERALLY TECHNIQUE: Color and pulse Doppler interrogation was performed of both carotid systems, with image documentation and velocity measurements. COMPARISON: [facility], US, US CAROTID BILATERAL, 02/12/2022, 10:13. [facility], US, US CAROTID DOPPLER BI, 08/09/2019, 9:19. FINDINGS: Stenosis calculations are based on SRU (Society of Radiologists in Ultrasound) criteria. Right side: Brachial blood pressure: 137/75 mm Hg. Common carotid artery peak systolic velocity: 80 cm/sec. Internal carotid artery peak systolic velocity: 61 cm/sec. Internal carotid artery end diastolic velocity: 24 cm/sec. External carotid artery peak systolic velocity: 65 cm/sec. ICA/CCA peak systolic ratio: 0.8 . Gonzales scale imaging description: Lnvb-cn-oldmouiv atherosclerotic plaques Percent internal carotid artery stenosis: Less than 50 percent . Vertebral artery: Flow direction is antegrade. Left side: Brachial blood pressure: 134/71 mm Hg. Common carotid artery peak systolic velocity: 75 cm/sec. Internal carotid artery peak systolic velocity: 83 cm/sec. Internal carotid artery end diastolic velocity: 29 cm/sec. External carotid artery peak systolic velocity: 77 cm/sec. ICA/CCA peak systolic ratio: 1.1 . Gonzales scale imaging description: Ayzr-ga-klqibukr atherosclerotic plaques Percent internal carotid artery stenosis: Less than 50 percent . Vertebral artery: Flow direction is antegrade. IMPRESSION: Less than 50 percent stenosis of the bilateral internal carotid arteries. Dictated by: Robin Villegas M.D. on 02/29/2024 at 11:43 Approved by: Robin Villegas M.D. on 02/29/2024 at 11:45
== END ==
LOC: US 10:22
PROVIDERS: PCP Family Medicine; Referring Provider Internal Medicine Cardiovascular Disease; Visit Provider Internal Medicine Cardiovascular Disease
DX: I65.23 Occlusion and stenosis of bilateral carotid arteries (principal)
CPT/HCPCS: 93880

== ENCOUNTER → 2024-08-01 07:32 | Outpatient (CLI) | payer OTHER, SELFPAY ==
[2024-08-01 09:25] LABS: Free T4, Direct Thyroxine 1.13 ng/dL (0.78-2.19)
[2024-08-01 09:39] LABS: Thyroid Stimulating Hormone 2.92 uIU/mL (0.47-4.68)
== END ==
PROVIDERS: PCP Family Medicine; Referring Provider Internal Medicine Cardiovascular Disease; Visit Provider Internal Medicine Cardiovascular Disease
DX: I48.0 Paroxysmal atrial fibrillation (principal)
CPT/HCPCS: 36415; 84439; 84443

== ENCOUNTER → 2024-09-23 07:42 | Outpatient (CLI) | payer OTHER, SELFPAY ==
[2024-09-23 10:37] LABS: BUN Creatinine Ratio 21.8 (6-22); Blood Urea Nitrogen 29 mg/dL (9-20); Calcium 8.6 mg/dL (8.4-10.2); Carbon Dioxide 24 mmol/L (22-32); Chloride 110 mmol/L (98-107); Cholesterol 122 mg/dL (140-199); Estimated Glomerular Filt Rate 53 mL/min (>60); Glucose 84 mg/dL (80-110); HDL Cholesterol 67 mg/dL (40-60); HEMOLYSIS < 15 (0-50); LDL Cholesterol Calculated 43 mg/dL (<100); Potassium 4.2 mmol/L (3.4-5.1); Sodium 139 mmol/L (137-145); Triglycerides 58 mg/dL (35-150)
== END ==
PROVIDERS: PCP Family Medicine; Referring Provider Internal Medicine Cardiovascular Disease; Visit Provider Internal Medicine Cardiovascular Disease
DX: I10 Essential (primary) hypertension (principal)
CPT/HCPCS: 36415; 80048; 80061

== ENCOUNTER 2024-11-20 10:15 | Outpatient (RCR) | payer OTHER, SELFPAY | END 2024-11-20 12:15 | LOC: CAR 10:15 | PROVIDERS: PCP Family Medicine; Referring Provider Family Medicine; Visit Provider Internal Medicine | DX: Z95.2 Presence of prosthetic heart valve (principal) | CPT/HCPCS: 93798 ==

== ENCOUNTER → 2024-11-24 10:12 | Outpatient (CLI) | payer OTHER, SELFPAY ==
--- NOTE | 2024-11-24 10:14 | DI.RAD.S_ITS ---
PROCEDURE: XR SHOULDER RT MIN 2V INDICATIONS: right shoulder injury/ fall TECHNIQUE: 3 views of the shoulder were acquired. COMPARISON: None. FINDINGS: Bones: No fractures or dislocations. No suspicious bony lesions. Visualized ribs appear intact. Glenohumeral and acromioclavicular joint space narrowing with associated osteophytosis. Suspected chronic type 2 AC joint injury. Soft tissues: No suspicious soft tissue calcifications. IMPRESSION: No acute bony abnormality. Suspected chronic type 2 AC joint injury. Moderate shoulder osteoarthritis. Dictated by: Thad Girard M.D. on 11/24/2024 at 14:30 Approved by: Thad Girard M.D. on 11/24/2024 at 14:31
== END ==
PROVIDERS: PCP Family Medicine; Referring Provider Family Medicine; Visit Provider Family Medicine
DX: M19.011 Primary osteoarthritis, right shoulder (principal); M25.511 Pain in right shoulder
CPT/HCPCS: 73030

== ENCOUNTER → 2024-11-30 08:45 | Outpatient (CLI) | payer OTHER, SELFPAY ==
--- NOTE | 2024-11-30 08:46 | DI.MRI.S_ITS ---
PROCEDURE: MR SHOULDER RT WO CON INDICATIONS: right shoulder pain/fall TECHNIQUE: Noncontrast oblique coronal T2 fast spin echo with fat saturation, oblique sagittal T1 spin echo and T2 fast spin echo with fat saturation, axial T1 spin echo and T2 fast spin echo with fat saturation through the shoulder. COMPARISON: [facility], CR, XR SHOULDER RT MIN 2V, 11/24/2024, 10:12. FINDINGS: Image quality: Excellent. Rotator cuff: Full-thickness tearing of the supraspinatus and infraspinatus tendons from their distal insertions with proximal tendon retraction measuring up to 3 cm. Teres minor tendon demonstrates mild tendinosis. Moderate tendinosis of the subscapularis tendon with low-grade partial articular sided and intrasubstance tearing at the distal insertion. Edema is seen within the supraspinatus and infraspinatus muscles suspicious for muscle strains. No significant rotator cuff muscle atrophy. Bones and bursae: No acute trabecular bone injury or fracture. Small chronic traction cystic changes are seen at the posterior superior humeral head and greater tuberosity near the rotator cuff tendon insertions. Partial-thickness cartilage irregularity in the glenohumeral joint. Humeral head is high riding with narrowing of the acromial humeral interval. Moderate widening of the acromioclavicular joint with mild superior offset of the distal clavicle relative to the acromion. There is partial ossification along the course of the coracoclavicular ligament likely related to prior ligament tearing. Small amount of fluid is seen in the subacromial/subdeltoid bursa. There is a small glenohumeral effusion. A filling defect of the superior subscapularis recess measures up to 8 mm. Capsule and soft tissues: Mild edema in the deltoid muscle and the included portions of the pectoralis major muscle suspicious for muscle strains. Diffuse labral degeneration and chronic degenerative tearing. Proximal biceps long head tendon demonstrates moderate to severe tendinosis and partial intrasubstance tearing. No acute glenohumeral ligament tearing is seen. IMPRESSION: 1. Full-thickness tearing of the supraspinatus and infraspinatus tendons from their distal insertions with proximal tendon retraction measuring approximately 3 cm. Humeral head is high riding with narrowing of the acromial humeral interval. 2. Low-grade partial intrasubstance and articular sided tearing of the subscapularis tendon at the distal insertion superimposed on moderate tendinosis. 3. Partial intrasubstance tearing of the proximal biceps long head tendon superimposed on moderate to severe tendinosis. 4. Diffuse labral degeneration and chronic degenerative tearing. 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 5. Posttraumatic changes at the acromioclavicular joint with widening and mild subluxation and superimposed degenerative changes. There is ossification of the coracoclavicular ligament suspicious for prior ligament tearing. 6. Small subacromial/subdeltoid bursal effusion communicates with the glenohumeral joint space. Suspected loose body at the superior subscapularis recess. 7. Intramuscular edema within the supraspinatus and infraspinatus muscles as well as the deltoid muscle and lateral pectoralis major muscle, suspicious for low-grade muscle strains. Approved by: Chapin Garcia M.D. on 11/30/2024 at 10:54
== END ==
PROVIDERS: PCP Family Medicine; Referring Provider Family Medicine; Visit Provider Family Medicine
DX: S43.111A Subluxation of right acromioclavicular joint, initial encounter (principal); M75.121 Complete rotator cuff tear or rupture of right shoulder, not specified as traumatic; M94.211 Chondromalacia, right shoulder; S46.111A Strain of muscle, fascia and tendon of long head of biceps, right arm, initial encounter; R60.0 Localized edema; M25.411 Effusion, right shoulder; M25.511 Pain in right shoulder
CPT/HCPCS: 73221

== ENCOUNTER → 2025-03-13 08:07 | Outpatient (CLI) | payer OTHER, SELFPAY ==
--- NOTE | 2025-03-13 08:09 | DI.ECHO.S_ITS ---
[facility] : : [address] : : [place] : : [id number] : : Phone: [phone] Echocardiogram Report + + :Name: HEIDI URENA Study Date: 03/13/2025 Height: 71 in : :Hospital ReadingLocation: Weight: 192 lb : : Gender: Male BSA: 2.1 m2 : :: 1940 Age: 84 yrs BP: 115/63 mmHg: :Reason For Study: AORTIC VALVE REPLACEMENT : :Ordering Physician: PATRICK, : :LAKSHMI Performed By: Sonam Parra : :Referring: LAKSHMI NGUYEN : + + Interpretation Summary The patient was in normal sinus rhythm during the exam. The patient had frequent PACs during the exam. The left ventricle is normal in size. The left ventricular ejection fraction is normal. The ejection fraction is estimated to be 60-65%. Previously LVEF 50 to 55%. There are no focal wall motion abnormalities. There is a significant dyssynchronous contraction pattern, consistent with a conduction abnormality. The right ventricle is normal in size and function. There is a bioprosthetic aortic valve. The prosthetic aortic valve is well-seated. Morphologically, bioprosthetic aortic valve opens normally. The peak aortic velocity is 3.4 m/sec. Previous aortic valve velocity was 2.78 m/s. The aortic valve mean gradient is 22 mmHg. Peak LV outflow tract velocity 1.38 m/s. Likely increased LV outflow tract as well as aortic velocity due to good cardiac output. No significant aortic stenosis. sev ratio: 0.47 There is mild tricuspid regurgitation. The right ventricular systolic pressure is estimated to be at least 40 mmHg based on an estimated right atrial pressure of 3 mm Hg. Previously 28 mmHg. Moderate atherosclerotic plaque(s) in the aortic arch. Procedure: A two-dimensional transthoracic echocardiogram with color flow and Doppler was performed. The study quality was technically adequate. Comparison is made with the echocardiogram of 03/13/2024. Frequent ectopy. The heart rate ranged between 58-72 bpm during the study. The patient was in normal sinus rhythm during the exam. The patient had frequent PACs during the exam. Left Ventricle: The left ventricle is normal in size. There is mild concentric left ventricular hypertrophy. There is no thrombus. The ejection fraction is estimated to be 60-65%. The left ventricular ejection fraction is normal. There are no focal wall motion abnormalities. There is a significant dyssynchronous contraction pattern, consistent with a conduction abnormality. Diastolic parameters suggest a relaxation abnormality of the left ventricle, consistent with probable normal filling pressures. Right Ventricle: The right ventricle is normal in size and function. Atria: The left atrium is severely dilated. There has been no significant change since the previous study. Right atrial size is normal. There is no Doppler evidence for an interatrial shunt. Mitral Valve: The mitral valve leaflets appear mildly thickened, but open well. There is mild to moderate mitral annular calcification. The mitral valve chordae are thickened and/or calcified. There is mild mitral regurgitation. Aortic Valve: There is a bioprosthetic aortic valve. The prosthetic aortic valve is well-seated. The peak aortic velocity is 3.4 m/sec. The aortic valve mean gradient is 22 mmHg. The calculated aortic valve area is 1.5 cm2. No aortic regurgitation is present. Tricuspid Valve: The tricuspid valve is normal. There is mild tricuspid regurgitation. The right ventricular systolic pressure is estimated to be at least 40 mmHg based on an estimated right atrial pressure of 3 mm Hg. Pulmonic Valve: The pulmonic valve leaflets are thin and pliable; valve motion is normal. There is mild pulmonic regurgitation. Great Vessels: The aortic root is normal size. The ascending aorta is at the upper limits of normal in size. Moderate atherosclerotic plaque(s) in the aortic arch. The IVC is of normal diameter and collapses greater than 50% with a sniff. This suggests a low right atrial pressure of 3 mm Hg. Pericardium/ Pleura There is no pericardial effusion. There is no pleural effusion. MMode/2D Measurements & Calculations LVIDd: 5.0 cm LVOT diam: 2.1 cm LVIDs: 3.8 cm asc Aorta Diam: 3.5 cm FS: 22.9 % Ao Arch Diam (Prox Trans): 3.3 cm IVSd: 1.2 cm LVPWd: 1.2 cm LV perez. diameter/BSA (cm/m^2): 2.4 LV sys. diameter/BSA (cm/m^2): 1.8 LA A2 area: 31.7 cm2 RA long axis: 6.1 cm LA A4 area: 23.4 cm2 RA area: 19.8 cm2 LA length (vol): 6.5 cm RA vol: 55.2 ml LA vol: 97.4 ml RA : 26.6 ml/m2 LA vol index: 47.0 ml/m2 IVC diam: 1.4 cm RVD1 (basal): 3.3 cm RVD2 (mid): 3.2 cm TAPSE: 1.8 cm Doppler Measurements & Calculations Ao V2 max: 336.3 cm/sec LVOT Max Josh: 138.2 cm/sec Ao V2 mean: 213.9 cm/sec LV V1 max P.6 mmHg Ao max P.9 mmHg LV V1 VTI: 30.9 cm Ao mean P.4 mmHg JUDY(I,D): 1.7 cm2 Ao V2 VTI: 65.8 cm JUDY(V,D): 1.5 cm2 sev ratio: 0.47 JUDY indexed to BSA (cm^2/m^2): 0.80 MV E max josh: 73.5 cm/sec TR max josh: 310.0 cm/sec MV A max josh: 102.2 cm/sec TR max P.4 mmHg MV E/A: 0.72 PA V2 max: 132.2 cm/sec Med Peak E' Josh: 6.5 cm/sec PA V2 mean: 92.2 cm/sec E/E' med: 11.4 PA mean P.8 mmHg Lat Peak E' Josh: 7.7 cm/sec PA pr(Accel): 25.1 mmHg E/E' lat: 9.5 E/e' average: 10.4 MV dec time: 0.29 sec SV(LVOT): 109.8 ml Reading Physician:04:37 PM
--- NOTE | 2025-03-13 08:09 | DI.US.S_ITS ---
PROCEDURE: US RETRO PERITONEAL LIMITED INDICATIONS: INFRARENAL ABDOMINAL AORTIC ANEURYSM TECHNIQUE: Real time scanning was performed of the aorta and iliac arteries, with image documentation. COMPARISON: [facility], , RETRO PERITONEAL LIMITED, 07/03/2020, 13:07. FINDINGS: Aorta: The proximal, mid and distal aorta measures 3.2 cm, 2.4 cm and 4.8 cm respectively. Previous measurements were 1.8 cm, 2.0 cm, and 4.5 cm Iliac arteries: Right common iliac artery measures 1.4 cm, previously 1.1 cm. Left common iliac artery measures 1.3 cm, previously 1.2 cm. Incidental note is made of a large cyst in the right lower quadrant measuring 8.1 by 7.9 x 7.0 cm IMPRESSION: Enlarging abdominal aortic aneurysm now measuring up to 4.8 cm. Vies six-month follow-up and surgical consultation Incidental large right lower quadrant simple cyst, nonspecific Approved by: Patrice Hussein M.D. on 03/13/2025 at 16:56
== END ==
PROVIDERS: PCP Family Medicine; Referring Provider Internal Medicine Cardiovascular Disease; Visit Provider Internal Medicine Cardiovascular Disease
DX: I71.43 Infrarenal abdominal aortic aneurysm, without rupture (principal); R19.03 Right lower quadrant abdominal swelling, mass and lump; I08.1 Rheumatic disorders of both mitral and tricuspid valves; I70.0 Atherosclerosis of aorta; Z95.2 Presence of prosthetic heart valve
CPT/HCPCS: 76775; 93306

== ENCOUNTER → 2025-03-27 07:31 | Outpatient (CLI) | payer OTHER, SELFPAY ==
[2025-03-27 08:23] LABS: Hematocrit 34.9 % (41-53); Hemoglobin 12.1 g/dL (13.5-17.5); Mean Corpuscular HGB Conc 34.6 % (30-36); Mean Corpuscular Hemoglobin 34.4 PG (26-34); Mean Corpuscular Volume 99.4 fL (80-100); Platelet Count 192 X10^3/uL (150-400); Red Blood Cell Count 3.51 X10^6/uL (4.5-5.9); Red Cell Distribution Width 14.2 % (11.6-14.8); White Blood Cell Count 5.7 X10^3/uL (4.5-11.0)
[2025-03-27 08:58] LABS: Alanine Aminotransferase 27 IU/L (<50); Albumin 3.9 g/dL (3.5-5.0); Albumin Globulin Ratio 1.8 (1.0-2.8); Alkaline Phosphatase 68 U/L (38-126); Aspartate Aminotransferase 36 IU/L (17-59); BUN Creatinine Ratio 14.4 (6-22); Bilirubin Total 0.7 mg/dL (0.2-1.3); Blood Urea Nitrogen 17 mg/dL (9-20); Calcium 8.4 mg/dL (8.4-10.2); Carbon Dioxide 25 mmol/L (22-32); Chloride 108 mmol/L (98-107); Cholesterol 131 mg/dL (140-199); Estimated Glomerular Filt Rate > 60 mL/min (>60); Globulin 2.2 g/dL (1.7-4.1); Glucose 91 mg/dL (70-99); HDL Cholesterol 66 mg/dL (40-60); HEMOLYSIS < 15 (0-50); LDL Cholesterol Calculated 49 mg/dL (<100); Potassium 4.4 mmol/L (3.4-5.1); Sodium 138 mmol/L (137-145); Total Protein 6.1 g/dL (6.3-8.2); Triglycerides 80 mg/dL (35-150)
== END ==
PROVIDERS: PCP Family Medicine; Referring Provider Nurse Practitioner Acute Care; Visit Provider Nurse Practitioner Acute Care
DX: I48.0 Paroxysmal atrial fibrillation (principal); I10 Essential (primary) hypertension; E78.5 Hyperlipidemia, unspecified
CPT/HCPCS: 36415; 80053; 80061; 85027

== ENCOUNTER → 2025-08-13 13:23 | Outpatient (CLI) | payer OTHER, SELFPAY | LOC: RESP 13:24 | PROVIDERS: PCP Family Medicine; Referring Provider Internal Medicine Cardiovascular Disease; Visit Provider Internal Medicine Cardiovascular Disease | DX: Z79.899 Other long term (current) drug therapy (principal); Z87.891 Personal history of nicotine dependence; R94.2 Abnormal results of pulmonary function studies | CPT/HCPCS: 94060; 94726; 94729 ==

== ENCOUNTER → 2025-10-01 14:08 | Outpatient (CLI) | payer OTHER, SELFPAY ==
--- NOTE | 2025-10-01 14:10 | DI.RAD.S_ITS ---
PROCEDURE: XR KNEE LT 3V INDICATIONS: knee pain TECHNIQUE: 3 views of the knee were acquired. COMPARISON: [facility], , KNEE 3V LEFT, 12/08/2017, 9:57. FINDINGS: Bones: No fractures or dislocations. No suspicious bony lesions. Tricompartmental degenerate arthrosis reaches grade 3 in the lateral compartment. Soft tissues: No joint effusion. No suspicious soft tissue calcifications. Vascular calcifications. IMPRESSION: No acute bony abnormality or significant effusion. Progressive lateral compartment predominant, grade 3, degenerative arthrosis of the knee. Dictated by: Hong Alejandro M.D. on 10/01/2025 at 15:56 Approved by: Hong Alejandro M.D. on 10/01/2025 at 15:57
--- NOTE | 2025-10-01 14:10 | DI.RAD.S_ITS ---
PROCEDURE: XR KNEE RT 3V INDICATIONS: knee pain TECHNIQUE: 3 views of the knee were acquired. COMPARISON: [facility], , KNEE 3V LEFT, 12/08/2017, 9:57. FINDINGS: Bones: No fractures or dislocations. No suspicious bony lesions. Lateral compartment predominant, grade 3, degenerative arthrosis. Soft tissues: No joint effusion. No suspicious soft tissue calcifications. Vascular calcifications. IMPRESSION: No acute bony abnormality or significant effusion. Right knee lateral compartment predominant grade 3 degenerative arthrosis. Dictated by: Hong Alejandro M.D. on 10/01/2025 at 15:57 Approved by: Hong Alejandro M.D. on 10/01/2025 at 15:57
== END ==
PROVIDERS: PCP Family Medicine; Referring Provider Family Medicine; Visit Provider Family Medicine
DX: M17.0 Bilateral primary osteoarthritis of knee (principal); M25.561 Pain in right knee; M25.562 Pain in left knee
CPT/HCPCS: 73562

== ENCOUNTER → 2025-10-12 09:57 | Outpatient (CLI) | payer OTHER, SELFPAY ==
[2025-10-12 11:32] LABS: Add Manual Diff / Slide Review NO; Hematocrit 39.0 % (41-53); Hemoglobin 13.3 g/dL (13.5-17.5); Lymphocytes Absolute Auto 1400 /uL (1100-4500); Mean Corpuscular HGB Conc 34.1 % (30-36); Mean Corpuscular Hemoglobin 34.1 PG (26-34); Mean Corpuscular Volume 99.8 fL (80-100); Platelet Count 209 X10^3/uL (150-400)
[2025-10-12 12:02] LABS: Blood Urea Nitrogen 28 mg/dL (9-20); Calcium 8.5 mg/dL (8.4-10.2); Carbon Dioxide 26 mmol/L (22-32); Chloride 106 mmol/L (98-107); Estimated Glomerular Filt Rate 46 mL/min (>60); Glucose 85 mg/dL (70-99); HEMOLYSIS < 15 (0-50); Potassium 4.3 mmol/L (3.4-5.1); Sodium 138 mmol/L (137-145)
== END ==
LOC: LAB 10:02
PROVIDERS: PCP Family Medicine; Referring Provider Family Medicine; Visit Provider Internal Medicine Cardiovascular Disease
DX: I48.20 Chronic atrial fibrillation, unspecified (principal)
CPT/HCPCS: 36415; 80048; 85025